=== PATIENT | male | born 1945 | race Caucasian/White ===

== ENCOUNTER 2016-11-16 22:25 | Inpatient (IN) | payer MEDICARE, BC ==
[~2016-11-16] VITALS: Ht 177.8 cm; Wt 85.9 kg
[2016-11-16 22:23] VITALS: O2SAT 98
[~2016-11-16 22:25] MED LIST: CHOL1TAB42 PO; IPRAAER INH; PANT40TA3 PO; PLAV75TA29 PO; SIMV20TA PO; VITA10004 PO
[2016-11-16 22:34] VITALS: BP 156/85; PULSE 107; RESP 30; TEMP 98.7
[2016-11-16 22:42] VITALS: BP 156/85; PULSE 99; RESP 25; O2SAT 98
[2016-11-16] MEDS ORDERED: SODIUM CHLORIDE 0.9% FLUSH 10 ML FLUSH IVF PRN (22:45)
[2016-11-16] MEDS ORDERED: RESP: ALBUTEROL 2.5 MG/IPRATROPIUM 0.5 MG NEB (SCH) NEB ONE (22:45)
[2016-11-16 22:52] VITALS: O2SAT 99
--- NOTE | 2016-11-16 23:03 | RADRPT ---
EXAM DATE/TIME: 11/16/2016 22:31 [place] COMPARISON: CHEST SINGLE AP, April 17, 2016, 20:30. INDICATIONS : Shortness of breath. MEDICAL HISTORY : None. SURGICAL HISTORY : Lobectomy. ENCOUNTER: Initial ACUITY: 1 day PAIN SCORE: 0/10 LOCATION: Bilateral chest FINDINGS: A single view of the chest demonstrates prominent lucency in the right upper lobe/right apex. There a re postsurgical changes in the right lung with volume loss. Lungs are slightly hyperinflated. Bibasil ar subsegmental atelectasis/scarring. Old rib fractures on the right. CONCLUSION: 1. Bibasilar subsegmental atelectasis/scarring. 2. Lucency in the right apex likely emphysematous changes. Rogelio Walton MD on November 16, 2016 at 22:59 Board Certified Radiologist. This report was verified electronically.
[2016-11-16 23:10] LABS: AUTOMATED NEUTROPHIL # 11.7 TH/MM3 (1.8-7.7); BASOPHIL # 0.1 TH/MM3 (0-0.2); BASOPHIL % 0.8 % (0.0-2.0); EOSINOPHIL # 0.1 TH/MM3 (0-0.4); EOSINOPHIL % 0.7 % (0.0-4.0); HEMATOCRIT 49.7 % (39.0-51.0); HEMO FLAGS DIFF FINAL; LYMPH % 8.9 % (9.0-44.0); LYMPHOCYTE # 1.2 TH/MM3 (1.0-4.8); MEAN CELL VOLUME 89.1 FL (80.0-100.0); MEAN CORPUSCULAR HEMOGLOBIN 29.8 PG (27.0-34.0); MEAN CORPUSCULAR HGB CONC 33.4 % (32.0-36.0); MONO % 5.7 % (0.0-8.0); NEUT % 83.9 % (16.0-70.0); PLATELET COUNT 140 TH/MM3 (150-450); RED BLOOD COUNT 5.57 MIL/MM3 (4.50-5.90); RED CELL DISTRIBUTION WIDTH 14.7 % (11.6-17.2); WHITE BLOOD COUNT 13.9 TH/MM3 (4.0-11.0)
[2016-11-16 23:10] LABS: BLOOD GAS BASE EXCESS 1.2 mmol/L (-2-2); BLOOD GAS CARBOXYHEMOGLOBIN 1.7 % (0-4); BLOOD GAS HCO3 26 mmol/L (22-26); BLOOD GAS METHEMOGLOBIN 0.5 % (0-2); BLOOD GAS O2 HGB SATURATION 98 % (90-100); BLOOD GAS OXYGEN CONTENT 24.1 Vol % (12.0-20.0); BLOOD GAS PCO2 44 mmHg (38-42); BLOOD GAS PO2 408 mmHG (61-120); BLOOD GAS TOTAL HGB 16.9 G/DL (12.0-16.0); CRITICAL VALUE NO; DRAW SITE RT RADIAL; NUMBER OF ARTERIAL PUNCTURES 1; OXYGEN DEVICE BiPAP; STAT YES; TEMP CORR TO 98.6; ULNAR PULSE PRESENT; VENT SETTINGS IPAP15/EPAP5
[2016-11-16 23:16] VITALS: O2SAT 99
[2016-11-16 23:16] LABS: FIO2 90 %
[2016-11-16 23:26] LABS: ANION GAP 7 MEQ/L (5-15); BICARBONATE 28.5 MEQ/L (21.0-32.0); BLOOD UREA NITROGEN 11 MG/DL (7-18); CHLORIDE 105 MEQ/L (98-107); GLOMERULAR FILTRATION RATE 61 ML/MIN (>89); POTASSIUM 3.6 MEQ/L (3.5-5.1); SODIUM (NA) 140 MEQ/L (136-145)
[2016-11-16 23:30] LABS: CREATINE KINASE 80 U/L (39-308)
[2016-11-16] MEDS ORDERED: SIMV20TA PO (23:33)
[2016-11-16] MEDS ORDERED: GUAI1TAB27 PO (23:34)
[2016-11-17] VITALS (10 sets, daily range): BP systolic 105–136; BP diastolic 56–76; PULSE 18–99; RESP 18–25; O2SAT 93–96
[2016-11-17] MEDS ORDERED: methylPREDNISolone SOD SUCC 125 MG/2 ML VIAL IVP ONE (00:30)
--- NOTE | 2016-11-17 00:30 | PD ---
HPI Chief Complaint: Respiratory Distress Time Seen by Provider: 22:36 Travel History International Travel<30 days: No Contact w/Intl Traveler<30days: No Traveled to known affect area: No History of Present Illness HPI 21-year-old male arrives to the ER with shortness of breath. He arrives by EVAC. He has been coughing all day long evidently severe at times. He reports dyspnea on exertion. Occasional phlegm production is reported. He has a history of COPD. He has a [id number] smoking history. He reports that dyspnea mild for the past 3 days which became quite a bit worse this afternoon. EMS gave the patient 80 milligrams of Lasix one sublingual nitroglycerin. On scene the blood pressure was 220/110 with a heart rate is 105. Minimal improvement was observed by the time the patient arrived to the ER. PFSH Past Medical History Hx Anticoagulant Therapy: Yes Anxiety: No Depression: No Cancer: Yes (PROSTATE) Cardiovascular Problems: Yes (Heart murmur) High Cholesterol: Yes COPD: Yes (Emphysema ) Cerebrovascular Accident: Yes (TIA) Diabetes: No Diminished Hearing: No Endocrine: No Gastrointestinal Disorders: No Genitourinary: No Hepatitis: No Hiatal Hernia: No Hypertension: Yes Immune Disorder: No Medical other: No Musculoskeletal: No Neurologic: Yes (TIA 1994) Psychiatric: No Respiratory: Yes Immunizations Current: Yes Thyroid Disease: Yes (S/P PTL THYROIDECTOMY FOR HYPER) Past Surgical History Abdominal Surgery: Yes (Appendix) AICD: No Appendectomy: Yes Body Medical Devices: [employer]. [employer] Cardiac Surgery: No Endocrine Surgery: Yes (Partial thyroid removal) Eye Surgery: Yes (Cataracts) Joint Replacement: No Pacemaker: No Thoracic Surgery: Yes (Right upper partial lobectomy) Other Surgery: Yes (R Partial Lobectomy December 25, 2015, thyroid removal 2010 ) Social History Alcohol Use: No Tobacco Use: No (Former smoker, quit December 2015) Substance Use: No Allergies-Medications (Allergen,Severity, Reaction): Coded Allergies: No Known Allergies (Verified , 04/17/16) Reported Meds & Prescriptions Reported Meds & Active Scripts Active Combivent Respimat Inh (Ipratropium-Albuterol Inh) 20-100 Retirement/Act Aero 1 Puff INH QID Pantoprazole (Pantoprazole Sodium) 40 Mg Tab 40 Mg PO DAILY Plavix (Clopidogrel Bisulfate) 75 Mg Tab 75 Mg PO DAILY Reported Mucinex Maximum Strength ER 12 HR (Guaifenesin) 1,200 Mg Kathleen 1,200 Mg PO BID Simvastatin 20 Mg Tab 20 Mg PO HS Vitamin D-3 (Cholecalciferol) 2,000 Unit Tab 2,000 Units PO DAILY Vitamin B-12 Cr (Cyanocobalamin) 1,000 Mcg Tab 2,000 Mcg PO DAILY Review of Systems Except as stated in HPI: all other systems reviewed are Neg General / Constitutional: No: Fever Respiratory: Positive: Cough, Shortness of Breath Physical Exam Narrative GENERAL: 71-year-old male pleasant, dyspneic SKIN: Focused skin assessment warm/dry. HEAD: Atraumatic. Normocephalic. EYES: Pupils equal and round. No scleral icterus. No injection or drainage. ENT: No nasal bleeding or discharge. Mucous membranes pink and moist. NECK: Trachea midline. No JVD. CARDIOVASCULAR: Tachycardia. Regular rhythm. RESPIRATORY: Lung sounds somewhat diminished bilaterally. Tachypnea/dyspnea. GASTROINTESTINAL: Abdomen soft, non-tender, nondistended. Hepatic and splenic margins not palpable. MUSCULOSKELETAL: No obvious deformities. No clubbing. No cyanosis. No edema. NEUROLOGICAL: Awake and alert. No obvious cranial nerve deficits. Motor grossly within normal limits. Normal speech. PSYCHIATRIC: Appropriate mood and affect; insight and judgment normal. Data Data Last Documented VS Vital Signs Date Time Temp Pulse Resp B/P Pulse Ox O2 Delivery O2 Flow Rate FiO2 11/16/16 23:16 99 35 11/16/16 22:52 BiPAP 11/16/16 22:42 104 25 11/16/16 22:42 156/85 11/16/16 22:34 98.7 Vital signs reviewed Orders Complete Blood Count With Diff (11/16/16 22:36) Basic Metabolic Panel (Bmp) (11/16/16 22:36) B-Type Natriuretic Peptide (11/16/16 22:36) Ckmb (Isoenzyme) Profile (11/16/16 22:36) Troponin I (11/16/16 22:36) Iv Access Insert/Monitor (11/16/16 22:36) Electrocardiogram (11/16/16 22:36) Ecg Monitoring (11/16/16 22:36) Oximetry (11/16/16 22:36) Oxygen Administration (11/16/16 22:36) Chest, Single Ap (11/16/16 22:36) Sodium Chloride 0.9% Flush (Ns Flush) (11/16/16 22:45) Resp Bipap / Cpap Non Invas Vt (11/16/16 22:36) Albuterol-Ipratropium Neb (Duoneb Neb) (11/16/16 22:45) Arterial Blood Gas (Abg) (11/16/16 23:00) Methylprednisolone So Succ Inj (Solumedr (11/17/16 00:30) Albuterol-Ipratropium Neb (Duoneb Neb) (11/17/16 00:30) Admit Order (Ed Use Only) (11/17/16 01:52) Labs Laboratory Tests Test 11/16/16 11/16/16 22:50 23:00 White Blood Count 13.9 TH/MM3 Red Blood Count 5.57 MIL/MM3 Hemoglobin 16.6 GM/DL Hematocrit 49.7 % Mean Corpuscular Volume 89.1 FL Mean Corpuscular Hemoglobin 29.8 PG Mean Corpuscular Hemoglobin 33.4 % Concent Red Cell Distribution Width 14.7 % Platelet Count 140 TH/MM3 Mean Platelet Volume 10.1 FL Neutrophils (%) (Auto) 83.9 % Lymphocytes (%) (Auto) 8.9 % Monocytes (%) (Auto) 5.7 % Eosinophils (%) (Auto) 0.7 % Basophils (%) (Auto) 0.8 % Neutrophils # (Auto) 11.7 TH/MM3 Lymphocytes # (Auto) 1.2 TH/MM3 Monocytes # (Auto) 0.8 TH/MM3 Eosinophils # (Auto) 0.1 TH/MM3 Basophils # (Auto) 0.1 TH/MM3 CBC Comment DIFF FINAL Differential Comment Sodium Level 140 MEQ/L Potassium Level 3.6 MEQ/L Chloride Level 105 MEQ/L Carbon Dioxide Level 28.5 MEQ/L Anion Gap 7 MEQ/L Blood Urea Nitrogen 11 MG/DL Creatinine 1.18 MG/DL Estimat Glomerular Filtration 61 ML/MIN Rate Random Glucose 121 MG/DL Calcium Level 9.7 MG/DL Total Creatine Kinase 80 U/L Troponin I LESS THAN 0.02 NG/ML B-Type Natriuretic Peptide 140 PG/ML Blood Gas Puncture Site RT RADIAL Blood Gas Patient Temperature 98.6 Blood Gas HCO3 26 mmol/L Blood Gas Base Excess 1.2 mmol/L Blood Gas Oxygen Saturation 98 % Arterial Blood pH 7.39 Arterial Blood Partial 44 mmHg Pressure CO2 Arterial Blood Partial 408 mmHG Pressure O2 Arterial Blood Oxygen Content 24.1 Vol % Arterial Blood 1.7 % Carboxyhemoglobin Arterial Blood Methemoglobin 0.5 % Blood Gas Hemoglobin 16.9 G/DL Oxygen Delivery Device BiPAP Blood Gas Ventilator Setting IPAP15/EPAP5 Blood Gas Inspired Oxygen 90 % MDM Medical Decision Making Medical Screen Exam Complete: Yes Emergency Medical Condition: Yes Medical Record Reviewed: Yes Differential Diagnosis Pneumonia, COPD, CHF Narrative Course CBC & BMP Diagram 11/16/16 22:50 EKG sinus tachycardia with occasional PVCs rate 101 BNP 140 Tn < 0.2 Last 24 hours Impressions Chest X-Ray 11/16/166 Signed Impressions: Service Date/Time: Wednesday, November 16, 2016 22:31 - CONCLUSION: 1. Bibasilar subsegmental atelectasis/scarring. 2. Lucency in the right apex likely emphysematous changes. Rogelio Walton MD Patient will be admitted for COPD exacerbation. d/w Dr Ordoñez. Diagnosis Primary Impression: COPD (chronic obstructive pulmonary disease) Qualified Code: J43.9 - Pulmonary emphysema, unspecified emphysema type Admitting Information Admitting Physician Requests: Admit Mac Esposito MD Nov 17, 2016 00:30
[2016-11-17] MEDS: RESP: ALBUTEROL 2.5 MG/IPRATROPIUM 0.5 MG NEB (SCH) INH (00:35)
[2016-11-17] MEDS ORDERED: RESP: ALBUTEROL 2.5 MG/IPRATROPIUM 0.5 MG NEB (PRN) NEB (02:15)
[2016-11-17] MEDS ORDERED: ONDANSETRON HCL 4 MG/2 ML VIAL IVP PRN (02:15)
[2016-11-17] MEDS ORDERED: MORPHINE SULFATE 4 MG/ML INJ IV PRN (02:15)
[2016-11-17] MEDS ORDERED: SODIUM CHLORIDE 0.9% FLUSH 10 ML FLUSH IV FLUSH PRN (02:15)
[2016-11-17] MEDS ORDERED: BISACODYL 10 MG SUPP PR PRN (02:15)
[2016-11-17] MEDS ORDERED: ACETAMINOPHEN/HYDROcodone 325 MG/5 MG TAB PO PRN (02:15)
[2016-11-17] MEDS ORDERED: ACETAMINOPHEN 325 MG TAB PO PRN (02:15)
--- NOTE | 2016-11-17 04:01 | HHI.HP ---
HPI Service [facility] Primary Care Physician Randee Bobo MD Admission Diagnosis COPD, Dyspnea Diagnoses: (1) COPD (chronic obstructive pulmonary disease) Diagnosis: Principal (2) Hypoxia Diagnosis: Principal (3) Leukocytosis Diagnosis: Principal (4) Thrombocytopenia Diagnosis: Principal (5) Dehydration Diagnosis: Principal Travel History International Travel<30 Days: No Contact w/Intl Traveler <30 Da: No Traveled to Known Affected Are: No History of Present Illness This is a 71-year-old male with a PMH of COPD, HTN, Prostate CA and h/o TIA who was brought to the ER by EMS secondary to SOB x3 days. Per , pt w/ progressive SOB and non-productive cough x3 days. Denies fever or chills. O2 sat 80's upon EMS arrival, s/p Lasix 80mg IV, NTG and placed on CPAP. On arrival, BP 156/85, HR 107, O2 sat 100% on BiPAP, Afebrile. WBC 13.9. Platelets 140, previously 126 on 04/19/16. GFR 61. BNP 140. CXR with bibasilar subsegmental atelectasis/scarring, lucency and right apex likely emphysematous changes. S/p Solu-Medrol and DuoNeb in ER w/ some improvement. Review of Systems Except as stated in HPI: all other systems reviewed are Neg ROS: 14 point review of systems otherwise negative. Past Family Social History Past Medical History PMH: COPD, HTN, Prostate CA and h/o TIA Past Surgical History PAST SURGICAL HISTORY: Appendectomy, Bilateral Wrist Surgery, Partial Thyroidectomy, Cataract Surgery, Right Partial Upper Lobectomy Allergies: Coded Allergies: No Known Allergies (Verified , 04/17/16) Family History PAST FAMILY HISTORY: Reviewed. No h/o DM or CAD Social History PAST SOCIAL HISTORY: Negative for alcohol, tobacco or drugs Physical Exam Vital Signs Vital Signs Date Time Temp Pulse Resp B/P Pulse Ox O2 Delivery O2 Flow Rate FiO2 11/17/16 03:23 94 35 11/17/16 03:18 84 18 107/59 96 BiPAP 3/26/17 23:16 99 35 11/16/16 22:52 99 BiPAP 100 11/16/16 22:42 104 25 98 CPAP 11/16/16 22:42 98 Room Air 11/16/16 22:42 99 25 156/85 98 BiPAP 100 11/16/16 22:42 98 BiPAP 11/16/16 22:34 98.7 107 30 156/85 11/16/16 22:23 98 90 Physical Exam PE: GENERAL: Elderly white male in no acute distress, currently on BiPAP. HEENT: PERRLA, EOMI. No scleral icterus or conjunctival pallor. No lid lag or facial droop. CARDIOVASCULAR: Regular rate and rhythm. No obvious murmurs to auscultation. No chest tenderness to palpation. RESPIRATORY: No obvious rhonchi or wheezing. Clear to auscultation. Breath sounds mildly diminished at bases. GASTROINTESTINAL: Abdomen soft, non-tender, nondistended. BS normal. MUSCULOSKELETAL: Extremities without clubbing, cyanosis, or edema. No obvious deformities. NEUROLOGICAL: Awake, alert and oriented x4. No focal neurologic deficits. Moving both upper and lower extremities spontaneously. Laboratory Laboratory Tests Test 11/16/16 11/16/16 22:50 23:00 White Blood Count 13.9 Red Blood Count 5.57 Hemoglobin 16.6 Hematocrit 49.7 Mean Corpuscular Volume 89.1 Mean Corpuscular Hemoglobin 29.8 Mean Corpuscular Hemoglobin 33.4 Concent Red Cell Distribution Width 14.7 Platelet Count 140 Mean Platelet Volume 10.1 Neutrophils (%) (Auto) 83.9 Lymphocytes (%) (Auto) 8.9 Monocytes (%) (Auto) 5.7 Eosinophils (%) (Auto) 0.7 Basophils (%) (Auto) 0.8 Neutrophils # (Auto) 11.7 Lymphocytes # (Auto) 1.2 Monocytes # (Auto) 0.8 Eosinophils # (Auto) 0.1 Basophils # (Auto) 0.1 CBC Comment DIFF FINAL Differential Comment Sodium Level 140 Potassium Level 3.6 Chloride Level 105 Carbon Dioxide Level 28.5 Anion Gap 7 Blood Urea Nitrogen 11 Creatinine 1.18 Estimat Glomerular Filtration 61 Rate Random Glucose 121 Calcium Level 9.7 Total Creatine Kinase 80 Troponin I LESS THAN 0.02 B-Type Natriuretic Peptide 140 Blood Gas Puncture Site RT RADIAL Blood Gas Patient Temperature 98.6 Blood Gas HCO3 26 Blood Gas Base Excess 1.2 Blood Gas Oxygen Saturation 98 Arterial Blood pH 7.39 Arterial Blood Partial 44 Pressure CO2 Arterial Blood Partial 408 Pressure O2 Arterial Blood Oxygen Content 24.1 Arterial Blood 1.7 Carboxyhemoglobin Arterial Blood Methemoglobin 0.5 Blood Gas Hemoglobin 16.9 Oxygen Delivery Device BiPAP Blood Gas Ventilator Setting IPAP15/EPAP5 Blood Gas Inspired Oxygen 90 Result Diagram: 11/16/16224911/16/162249 Assessment and Plan Problem List: (1) COPD (chronic obstructive pulmonary disease) ICD Code: J44.9 Status: Chronic (2) Hypoxia ICD Code: R09.02 Status: Acute (3) Leukocytosis ICD Code: D72.829 Status: Acute (4) Thrombocytopenia ICD Code: D69.6 Status: Acute (5) Dehydration ICD Code: E86.0 Status: Acute Assessment and Plan A/P: 1. COPD: Chronic Respiratory Failure w/ Acute Exacerbation. +Hypoxia w/ O2 sat 80% on EMS arrival, currently on BIPAP, wean as tolerated. CXR w/ bibasilar atelectasis/scarring, likely emphysema, images reviewed by me. Solu- Medrol, DuoNeb, Symbicort, Mucinex. 2. Leukocytosis: WBC 13.9, afebrile, CXR negative for acute infection, will monitor, repeat labs in am. 3. Dehydration: GFR 61, dehydration likely secondary to respiratory losses, will repeat labs in am. 4. DVT Prophylaxis: SCD/Teds. 5. Social work for d/c planning as needed. 6. Case discussed w/ ER physician at length. Physician Certification 2 Midnight Certification Type: Admission for Inpatient Services Order for Inpatient Services The services are ordered in accordance with Medicare regulations or non- Medicare payer requirements, as applicable. In the case of services not specified as inpatient-only, they are appropriately provided as inpatient services in accordance with the 2-midnight benchmark. Estimated LOS (days): 2 days is the estimated time the patient will need to remain in the hospital, assuming treatment plan goals are met and no additional complications. Post-Hospital Plan: Not yet determined Kelly Ordoñez MD Nov 17, 2016 04:01
[2016-11-17] MEDS: methylPREDNISolone SOD SUCC 40 MG/1 ML VIAL IV PUSH SCH ×4 (06:03→23:49)
[2016-11-17] MEDS: RESP: ALBUTEROL 2.5 MG/IPRATROPIUM 0.5 MG NEB (SCH) NEB ×4 (08:36→20:32)
[2016-11-17] MEDS: PANTOPRAZOLE SOD 40 MG DELAYED RELEASE TAB PO SCH (09:34)
[2016-11-17] MEDS: CLOPIDOGREL 75 MG TAB PO SCH (09:34)
[2016-11-17] MEDS: guaiFENesin E.R. 600 MG TAB PO SCH ×2 (09:34→23:49)
[2016-11-17] MEDS: BUDESONIDE-FORMOTEROL 160/4.5 MCG INHALER INH SCH ×2 (09:34→23:49)
[2016-11-17] MEDS: SODIUM CHLORIDE 0.9% FLUSH 10 ML FLUSH IV FLUSH SCH ×2 (10:00→21:00)
--- NOTE | 2016-11-17 15:11 | HHI.PR ---
Addendum to Inpatient Note Addendum Reason: Additional Documentation Additional Information Patient seen and examined. Breathing status improved. Continue to monitor breathing status. Supplemental oxygen, breathing treatments and steroids. Osmin Lowe MD Nov 17, 2016 15:11
--- NOTE | 2016-11-17 17:35 | EKG ---
Date Performed: 11/16/2016 Time Performed: 22:40:49 PTAGE: 71 years EKG: SINUS TACHYCARDIA WITH OCCASIONAL SUPRAVENTRICULAR PREMATURE COMPLEXES SEPTAL MYOCARDIAL IN FARCTION. Loss of R wave in lead V3 and V4 are more prominant than in prior Tracing, could represent lead placement or septal infarct. Clinical corrolation is suggested. ABNORMAL ECG PREVIOUS TRACING : 08/23/2014 09.07 DOCTOR: Tiburcio Lovelace Interpretating Date/Time 11/17/2016 17:33:44
[2016-11-18] VITALS (13 sets, daily range): BP systolic 102–155; BP diastolic 58–97; PULSE 83–98; RESP 16–22; TEMP 97.7–98.4; O2SAT 94–98
[2016-11-18 04:08] LABS: AUTOMATED NEUTROPHIL # 10.7 TH/MM3 (1.8-7.7); BASOPHIL % 0.2 % (0.0-2.0); HEMO FLAGS DIFF FINAL; LYMPH % 3.6 % (9.0-44.0); LYMPHOCYTE # 0.4 TH/MM3 (1.0-4.8); MEAN CELL VOLUME 88.1 FL (80.0-100.0); MONO % 3.7 % (0.0-8.0); NEUT % 92.5 % (16.0-70.0); PLATELET COUNT 141 TH/MM3 (150-450); RED BLOOD COUNT 5.11 MIL/MM3 (4.50-5.90); RED CELL DISTRIBUTION WIDTH 15.3 % (11.6-17.2); WHITE BLOOD COUNT 11.6 TH/MM3 (4.0-11.0)
[2016-11-18 04:43] LABS: ALKALINE PHOSPHATASE 55 U/L (45-117); ALT (GPT) 31 U/L (12-78); ANION GAP 7 MEQ/L (5-15); AST (GOT) 13 U/L (15-37); BICARBONATE 29.2 MEQ/L (21.0-32.0); BLOOD UREA NITROGEN 27 MG/DL (7-18); CHLORIDE 104 MEQ/L (98-107); GLOMERULAR FILTRATION RATE 54 ML/MIN (>89); POTASSIUM 4.5 MEQ/L (3.5-5.1); SODIUM (NA) 140 MEQ/L (136-145); TOTAL BILIRUBIN ADULT 0.7 MG/DL (0.2-1.0)
[2016-11-18] MEDS: methylPREDNISolone SOD SUCC 40 MG/1 ML VIAL IV PUSH SCH ×2 (06:48→21:17)
[2016-11-18] MEDS: RESP: ALBUTEROL 2.5 MG/IPRATROPIUM 0.5 MG NEB (SCH) NEB ×3 (08:01→19:31)
[2016-11-18] MEDS: BUDESONIDE-FORMOTEROL 160/4.5 MCG INHALER INH SCH ×2 (09:09→21:00)
[2016-11-18] MEDS: SODIUM CHLORIDE 0.9% FLUSH 10 ML FLUSH IV FLUSH SCH ×2 (09:09→21:00)
[2016-11-18] MEDS: CLOPIDOGREL 75 MG TAB PO SCH (09:09)
[2016-11-18] MEDS: PANTOPRAZOLE SOD 40 MG DELAYED RELEASE TAB PO SCH (09:09)
--- NOTE | 2016-11-18 10:23 | HHI.PR ---
Subjective Remarks Patient report his breathing is better. He is coughing less. Shortness of breath is at baseline. Objective Vitals Vital Signs Date Time Temp Pulse Resp B/P Pulse Ox O2 Delivery O2 Flow Rate FiO2 11/18/16 09:00 97.7 98 16 140/69 94 Nasal Cannula 3 11/18/16 08:03 96 Nasal Cannula 4.00 11/18/16 03:00 84 18 102/58 95 Nasal Cannula 3 11/17/16 23:00 92 25 105/56 95 Nasal Cannula 3 11/17/16 20:35 93 Nasal Cannula 5.00 11/17/16 19:01 99 18 111/75 95 Nasal Cannula 2 11/17/16 14:05 93 18 105/63 95 Room Air I/O 11/17/16 11/17/16 11/17/16 11/18/16 11/18/16 11/18/16 07:00 15:00 23:00 07:00 15:00 23:00 Intake Total 350 ml 350 ml Output Total 500 ml Balance 350 ml -150 ml Intake Oral 350 ml 350 ml Output Urine Total 500 ml # Voids 1 Result Diagram: 11/18/16 0351 11/18/16 0351 Imaging Last Impressions Chest X-Ray 11/16/162235 Signed Impressions: Service Date/Time: Wednesday, November 16, 2016 22:31 - CONCLUSION: 1. Bibasilar subsegmental atelectasis/scarring. 2. Lucency in the right apex likely emphysematous changes. Rogelio Walton MD Objective Remarks GENERAL: Elderly male in no apparent distress. CARDIOVASCULAR: Normal rate and regular rhythm without murmurs, gallops, or rubs. RESPIRATORY: Good respiratory efforts. Some diffuse faint expiratory wheezing. Otherwise diminished breath sounds at the bases. GASTROINTESTINAL: Abdomen soft, non-tender, non-distended. Normal active bowel sounds MUSCULOSKELETAL: Extremities without cyanosis, or edema. NEURO: Alert & Oriented x4 to person, place, time, situation. Moves all ext x4 PSYCH: Appropriate mood and affect. A/P Problem List: (1) COPD (chronic obstructive pulmonary disease) ICD Code: J44.9 Status: Chronic (2) Hypoxia ICD Code: R09.02 Status: Acute (3) Leukocytosis ICD Code: D72.829 Status: Acute (4) Thrombocytopenia ICD Code: D69.6 Status: Acute (5) Dehydration ICD Code: E86.0 Status: Acute Assessment and Plan 71-year-old male with: COPD exacerbation with hypoxemia: Oxygen saturation 80% on EMS arrival. Status post BiPAP. He is improving. - Continue Solu-Medrol. Titrate down to 40 mg IV twice a day. Continue breathing treatments, Symbicort, Mucinex. Add doxycycline. Follow sputum cultures - Consult patient's legal internship, Dr. Miller - Patient previously had home oxygen. History of prostate cancer: Advised outpatient follow-up. 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 GI prophylaxis: PPI. Stool softener PRN constipation. DVT PPx: Lovenox, renally dosed. Osmin Lowe MD Nov 18, 2016 10:23
[2016-11-18] MEDS: guaiFENesin E.R. 600 MG TAB PO SCH ×2 (10:30→21:18)
[2016-11-18] MEDS: DOXYCYCLINE HYCLATE 100 MG CAP PO SCH ×2 (13:55→21:17)
[2016-11-18] MEDS ORDERED: methylPREDNISolone SOD SUCC 40 MG/1 ML VIAL IV PUSH SCH (21:00)
[2016-11-18] MEDS: CEFEPIME INJ 2,000 MG in SODIUM CHLORIDE 0.9% INJ 100 ML IV SCH (21:19)
[2016-11-19] VITALS (26 sets, daily range): BP systolic 121–137; BP diastolic 74–82; PULSE 73–92; RESP 18; TEMP 96.5–98.7; O2SAT 95–99
[2016-11-19] MEDS: methylPREDNISolone SOD SUCC 40 MG/1 ML VIAL IV PUSH SCH ×2 (05:10→13:13)
--- NOTE | 2016-11-19 05:49 | MB ---
cc: ROSCOE BOWMAN DATE OF CONSULTATION 11/18/2016 REASON FOR CONSULTATION Respiratory distress and COPD. HISTORY OF PRESENT ILLNESS This is a 71-year-old white male with a history of COPD, hypertension and chronic bronchitis. He has had past history of right upper lobe granulomatous lung lesion. This was resected with a right lobectomy almost a year ago and the patient had a prolonged recovery with persistent loculated pneumothorax on the right side. He had also been treated for atypical mycobacterial infection which was later discontinued. His most recent chest x-ray only showed a small area of loculated pneumothorax on the right side. The patient started to have cough, wheezing, chest congestion, yellow sputum, weakness and low-grade fevers over the past one week. He was taking a cough medicine as well as an antibiotic but had no significant relief as an outpatient. He then could not catch his breath on Thursday and EVAC was called and then he was brought to the emergency room. A chest x-ray done upon arrival only showed scar tissue on the right side with some lucency at the right apex. The patient was initially placed on 100% FIO2 with a BiPap machine and he then improved. He was given IV steroids and bronchodilators and was transferred to the telemetry floor today. He has no hemoptysis, no night sweats or fevers and his chest pains are mostly on the right side. PAST HISTORY 1. Appendectomy. 2. Thyroidectomy. 3. Cataract repair. 4. Right upper lobectomy. 5. Bilateral wrist surgery. HABITS The patient smoked one pack per day for over 60 years and then quit. Alcohol use in the past but not recently. He is retired. FAMILY HISTORY Noncontributory. ALLERGIES None. SYSTEMS REVIEW The patient has gained weight. He has epigastric distress. He has right chest pains. He has no urinary symptoms. No leg or calf muscle pains. He has some joint pains in his extremities. No headaches or blackouts. PHYSICAL EXAMINATION GENERAL: This well-built elderly man who is alert and face was flushed. He is mildly dyspneic. VITAL SIGNS: Blood pressure 110/60, pulse 90, respirations 24, temperature 98.5. HEENT: Head normocephalic. Pupils reactive. Tongue moist. Nasal mucosa injected. Throat was clear. NECK: Supple without venous distension. No thyromegaly. No lymphadenopathy. CHEST: Equal movements with an increased AP diameter. Scar of surgery on the right side. Breath sounds diminished at the periphery. Crackles heard over the right mid and lower chest with a few crackles at the left base. HEART SOUNDS: Irregular S1 and S2. No murmur. ABDOMEN: Soft, benign. No masses. No organomegaly or tenderness. EXTREMITIES: No edema. NEUROLOGIC: Normal reflexes. There are no gross motor deficits. IMPRESSION 1. COPD with acute exacerbation 2. Severe emphysema with chronic bronchitis 3. 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 4. Thrombocytopenia. 5. Dehydration. PLAN 1. The patient has been placed on O2 at 2 liters. 2. Continue Solu-Medrol 40 mg IV every 6 hours. 3. Sputum will be sent for Gram's stain and culture. 4. Symbicort 160/4.5, two puffs twice daily was added. 5. DuoNeb nebs q.4 hours. 6. Antibiotic coverage including cefepime 2 grams IV q.12 hours was added in addition to doxycycline 100 mg b.i.d. 7. Follow-up chest x-ray to be done. Thank you, Dr. Ordoñez, for this consultation. MD KOTA Quinones/ERICA /12:04 AM /5:39 AM
[2016-11-19 06:47] LABS: BICARBONATE 31.5 MEQ/L (21.0-32.0); POTASSIUM 4.4 MEQ/L (3.5-5.1)
[2016-11-19 06:59] LABS: HEMATOCRIT 45.7 % (39.0-51.0); MEAN CELL VOLUME 89.2 FL (80.0-100.0); MEAN CORPUSCULAR HGB CONC 33.6 % (32.0-36.0); PLATELET COUNT 146 TH/MM3 (150-450); RED BLOOD COUNT 5.12 MIL/MM3 (4.50-5.90); REVIEW FLAG FINAL; WHITE BLOOD COUNT 11.1 TH/MM3 (4.0-11.0)
[2016-11-19] MEDS: RESP: ALBUTEROL 2.5 MG/IPRATROPIUM 0.5 MG NEB (SCH) NEB ×4 (07:36→19:41)
[2016-11-19] MEDS: BUDESONIDE-FORMOTEROL 160/4.5 MCG INHALER INH SCH ×2 (09:00→21:00)
[2016-11-19] MEDS: SODIUM CHLORIDE 0.9% FLUSH 10 ML FLUSH IV FLUSH SCH ×2 (09:00→21:00)
[2016-11-19] MEDS: DOXYCYCLINE HYCLATE 100 MG CAP PO SCH ×2 (09:17→21:57)
[2016-11-19] MEDS: PANTOPRAZOLE SOD 40 MG DELAYED RELEASE TAB PO SCH (09:18)
[2016-11-19] MEDS: CLOPIDOGREL 75 MG TAB PO SCH (09:18)
[2016-11-19] MEDS: CEFEPIME INJ 2,000 MG in SODIUM CHLORIDE 0.9% INJ 100 ML IV SCH ×2 (09:18→21:57)
[2016-11-19] MEDS: guaiFENesin E.R. 600 MG TAB PO SCH ×2 (09:18→21:57)
--- NOTE | 2016-11-19 12:24 | HHI.PR ---
Subjective Remarks Patient seen in follow-up for COPD exacerbation with hypoxemia: Patient reports he is feeling better. Coughing less but still get short of breath with minimal activities. He inquired about cardiopulmonary rehabilitation outpatient. Objective Vitals Vital Signs Date Time Temp Pulse Resp B/P Pulse Ox O2 Delivery O2 Flow Rate FiO2 11/19/16 11:06 97.9 79 18 126/76 96 11/19/16 11:06 81 11/19/16 10:39 78 11/19/16 09:39 78 11/19/16 08:34 88 11/19/16 07:56 86 11/19/16 07:38 98.4 88 18 133/82 95 11/19/16 06:13 73 11/19/16 05:00 74 11/19/16 04:00 80 11/19/16 03:00 84 11/19/16 03:00 98.7 83 121/74 98 11/19/16 02:00 78 11/19/16 01:00 80 11/19/16 00:00 86 11/18/16 23:00 98.3 83 131/74 96 11/18/16 23:00 87 11/18/16 22:00 84 11/18/16 21:00 96 11/18/16 20:00 98 11/18/16 19:00 88 11/18/16 19:00 98.4 95 155/86 97 11/18/16 16:14 97.8 92 20 108/65 94 11/18/16 15:03 95 Nasal Cannula 2.00 11/18/16 13:01 97.9 93 22 119/67 98 I/O 11/18/16 11/18/16 11/18/16 11/19/16 11/19/16 11/19/16 07:00 15:00 23:00 07:00 15:00 23:00 Intake Total 200 ml 240 ml Output Total 400 ml 300 ml Balance -200 ml -60 ml Intake Oral 200 ml 240 ml Output Urine Total 400 ml 300 ml # Voids 1 Result Diagram: 11/19/1652511/19/16525 Objective Remarks GENERAL: Elderly male in no apparent distress. CARDIOVASCULAR: Normal rate and regular rhythm without murmurs, gallops, or rubs. RESPIRATORY: Good respiratory efforts. Some diffuse faint expiratory wheezing. Otherwise diminished breath sounds at the bases. GASTROINTESTINAL: Abdomen soft, non-tender, non-distended. Normal active bowel sounds MUSCULOSKELETAL: Extremities without cyanosis, or edema. NEURO: Alert & Oriented x4 to person, place, time, situation. Moves all ext x4 PSYCH: Appropriate mood and affect. A/P Problem List: (1) COPD (chronic obstructive pulmonary disease) ICD Code: J44.9 Status: Chronic (2) Hypoxia ICD Code: R09.02 Status: Acute (3) Leukocytosis ICD Code: D72.829 Status: Acute (4) Thrombocytopenia ICD Code: D69.6 Status: Acute (5) Dehydration ICD Code: E86.0 Status: Acute Assessment and Plan 71-year-old male with: COPD exacerbation with hypoxemia: Oxygen saturation 80% on EMS arrival. Status post BiPAP. He is improving. - Continue Solu-Medro, breathing treatments, Symbicort, Mucinex. Cefepime and doxycycline. Preliminary sputum culture growing Moraxella catarrhalis -Appreciate trench pipe layer, Dr. Miller following. - Patient previously had home oxygen. History of prostate cancer: Advised outpatient follow-up. 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 GI prophylaxis: PPI. Stool softener PRN constipation. DVT PPx: Lovenox, renally dosed. Osmin Lowe MD Nov 19, 2016 12:24
[2016-11-19] MEDS: ENOXAPARIN SODIUM 30 MG/0.3 ML SYRINGE SQ SCH (13:13)
--- NOTE | 2016-11-19 19:28 | HHI.PR ---
Subjective Remarks Feels better. On O2 3 L. Sputum is clearing. No fever. SOB better Objective Vital Signs Date Time Temp Pulse Resp B/P Pulse Ox O2 Delivery O2 Flow Rate FiO2 11/19/16 18:07 86 11/19/16 17:08 86 11/19/16 16:00 92 11/19/16 15:57 86 11/19/16 15:57 97.7 88 18 137/76 97 11/19/16 15:23 97 Nasal Cannula 2.00 11/19/16 14:16 92 11/19/16 13:50 90 11/19/16 12:55 82 11/19/16 11:06 97.9 79 18 126/76 96 11/19/16 11:06 81 11/19/16 10:39 78 11/19/16 09:39 78 11/19/16 08:34 88 11/19/16 07:56 86 11/19/16 07:38 98.4 88 18 133/82 95 11/19/16 06:13 73 11/19/16 05:00 74 11/19/16 04:00 80 11/19/16 03:00 84 11/19/16 03:00 98.7 83 121/74 98 11/19/16 02:00 78 11/19/16 01:00 80 11/19/16 00:00 86 11/18/16 23:00 98.3 83 131/74 96 11/18/16 23:00 87 11/18/16 22:00 84 11/18/16 21:00 96 11/18/16 20:00 98 I/O 11/18/16 11/18/16 11/18/16 11/19/16 11/19/16 11/19/16 07:00 15:00 23:00 07:00 15:00 23:00 Intake Total 200 ml 240 ml 700 ml Output Total 400 ml 300 ml 575 ml Balance -200 ml -60 ml 125 ml Intake Oral 200 ml 240 ml 700 ml Output Urine Total 400 ml 300 ml 575 ml # Voids 1 # Bowel Movements 1 Result Diagram: 11/19/1652511/19/16525 Objective Remarks PHYSICAL EXAMINATION GENERAL: This well-built elderly man who is alert and face was flushed. He is not dyspneic. HEENT: Head normocephalic. Pupils reactive. Tongue moist. Nasal mucosa injected. Throat was clear. NECK: Supple without venous distension. No thyromegaly. No lymphadenopathy. CHEST: Equal movements with an increased AP diameter. Scar of surgery on the right side. Breath sounds diminished at the periphery. Crackles heard over the right mid and lower chest with a few wheezes anteriorly HEART SOUNDS: Irregular S1 and S2. No murmur. ABDOMEN: Soft, benign. No masses. No organomegaly or tenderness. EXTREMITIES: No edema. NEUROLOGIC: Normal reflexes. There are no gross motor deficits. Assessment and Plan Assessment and Plan IMPRESSION 1. COPD with acute exacerbation 2. Severe emphysema with chronic bronchitis 3. 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 4. Thrombocytopenia. 5. Dehydration. Plan : 1. Continue antibioitcs. 2. O2 at 2L. 3. Nebs qid , duoneb. 4. taper solumedrol to 40 mg bid. 5. Symbicort 160/4.5 mcg , 2 puffs bid 6. CBC,BMP Nico Miller MD Nov 19, 2016 19:28
[2016-11-20] VITALS (26 sets, daily range): BP systolic 120–159; BP diastolic 59–96; PULSE 68–92; RESP 18–20; TEMP 97.7–98.1; O2SAT 95–98
[2016-11-20 07:04] LABS: HEMATOCRIT 44.6 % (39.0-51.0); MEAN CELL VOLUME 89.4 FL (80.0-100.0); MEAN CORPUSCULAR HEMOGLOBIN 30.1 PG (27.0-34.0); MEAN CORPUSCULAR HGB CONC 33.7 % (32.0-36.0); PLATELET COUNT 118 TH/MM3 (150-450); RED BLOOD COUNT 4.99 MIL/MM3 (4.50-5.90); RED CELL DISTRIBUTION WIDTH 14.7 % (11.6-17.2); REVIEW FLAG FINAL; WHITE BLOOD COUNT 7.4 TH/MM3 (4.0-11.0)
[2016-11-20 07:11] LABS: POTASSIUM 4.4 MEQ/L (3.5-5.1)
[2016-11-20] MEDS: RESP: ALBUTEROL 2.5 MG/IPRATROPIUM 0.5 MG NEB (SCH) NEB ×4 (08:23→20:43)
[2016-11-20] MEDS ORDERED: methylPREDNISolone SOD SUCC 40 MG/1 ML VIAL IV PUSH SCH (09:00)
[2016-11-20] MEDS: SODIUM CHLORIDE 0.9% FLUSH 10 ML FLUSH IV FLUSH SCH (09:00)
[2016-11-20] MEDS: BUDESONIDE-FORMOTEROL 160/4.5 MCG INHALER INH SCH ×2 (09:00→21:00)
[2016-11-20] MEDS: DOXYCYCLINE HYCLATE 100 MG CAP PO SCH ×2 (09:08→21:15)
[2016-11-20] MEDS: guaiFENesin E.R. 600 MG TAB PO SCH ×2 (09:08→21:14)
[2016-11-20] MEDS: CLOPIDOGREL 75 MG TAB PO SCH (09:08)
[2016-11-20] MEDS: PANTOPRAZOLE SOD 40 MG DELAYED RELEASE TAB PO SCH (09:08)
[2016-11-20] MEDS: CEFEPIME INJ 2,000 MG in SODIUM CHLORIDE 0.9% INJ 100 ML IV SCH ×2 (09:08→21:16)
--- NOTE | 2016-11-20 10:39 | HHI.PR ---
Subjective Remarks Patient reports feeling better. Coughing less green sputum. More clear. Still on 2 L nasal cannula. Objective Vitals Vital Signs Date Time Temp Pulse Resp B/P Pulse Ox O2 Delivery O2 Flow Rate FiO2 11/20/16 08:25 98 Nasal Cannula 2.00 11/20/16 06:53 72 11/20/16 05:00 68 11/20/16 04:00 74 11/20/16 03:00 75 132/75 96 11/20/16 03:00 71 11/20/16 02:00 78 11/20/16 01:00 78 11/20/16 00:00 74 11/19/16 23:00 73 11/19/16 23:00 98.6 79 136/74 99 11/19/16 22:00 92 11/19/16 21:00 92 11/19/16 20:00 84 11/19/16 19:00 96.5 79 137/76 97 11/19/16 19:00 85 11/19/16 18:07 86 11/19/16 17:08 86 11/19/16 16:00 92 11/19/16 15:57 86 11/19/16 15:57 97.7 88 18 137/76 97 11/19/16 15:23 97 Nasal Cannula 2.00 11/19/16 14:16 92 11/19/16 13:50 90 11/19/16 12:55 82 11/19/16 11:06 97.9 79 18 126/76 96 11/19/16 11:06 81 11/19/16 10:39 78 I/O 11/19/16 11/19/16 11/19/16 11/20/16 11/20/16 11/20/16 07:00 15:00 23:00 07:00 15:00 23:00 Intake Total 240 ml 700 ml 240 ml Output Total 300 ml 575 ml 300 ml Balance -60 ml 125 ml -60 ml Intake Oral 240 ml 700 ml 240 ml Output Urine Total 300 ml 575 ml 300 ml # Bowel Movements 1 Result Diagram: 11/20/1651211/20/16512 Objective Remarks GENERAL: Elderly male in no apparent distress. CARDIOVASCULAR: Normal rate and regular rhythm without murmurs, gallops, or rubs. RESPIRATORY: Good respiratory efforts. Diminished breath sounds at the bases. Otherwise clear to auscultation. GASTROINTESTINAL: Abdomen soft, non-tender, non-distended. Normal active bowel sounds MUSCULOSKELETAL: Extremities without cyanosis, or edema. NEURO: Alert & Oriented x4 to person, place, time, situation. Moves all ext x4 PSYCH: Appropriate mood and affect. A/P Problem List: (1) COPD (chronic obstructive pulmonary disease) ICD Code: J44.9 Status: Chronic (2) Hypoxia ICD Code: R09.02 Status: Acute (3) Leukocytosis ICD Code: D72.829 Status: Acute (4) Thrombocytopenia ICD Code: D69.6 Status: Acute (5) Dehydration ICD Code: E86.0 Status: Acute Assessment and Plan 71-year-old male with: COPD exacerbation with hypoxemia: Oxygen saturation 80% on EMS arrival. Status post BiPAP. He is improving. - Continue Solu-Medro, breathing treatments, Symbicort, Mucinex. Cefepime and doxycycline. Preliminary sputum culture growing Moraxella catarrhalis - Appreciate metal bending machine operator, Dr. Miller following. - Patient previously has had home oxygen in the past. Will order home oxygen walk test. History of prostate cancer: Advised outpatient follow-up. 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 GI prophylaxis: PPI. Stool softener PRN constipation. DVT PPx: Lovenox, renally dosed. Discharge Planning Possible discharge tomorrow if remains stable. Osmin Lowe MD Nov 20, 2016 10:38
[2016-11-20] MEDS: ENOXAPARIN SODIUM 30 MG/0.3 ML SYRINGE SQ SCH (13:15)
--- NOTE | 2016-11-20 18:35 | HHI.PR ---
Subjective Remarks Feels much better. On O2 2 L. Sputum is clearing. No fever. SOB better Objective Vital Signs Date Time Temp Pulse Resp B/P Pulse Ox O2 Delivery O2 Flow Rate FiO2 11/20/16 18:25 91 11/20/16 17:29 92 11/20/16 16:02 91 11/20/16 15:34 81 11/20/16 15:34 98.0 81 120/59 97 11/20/16 14:15 85 11/20/16 13:42 87 11/20/16 12:26 80 11/20/16 11:40 76 11/20/16 11:40 97.7 75 139/74 95 11/20/16 11:24 2.00 11/20/16 10:39 75 11/20/16 09:45 75 11/20/16 08:56 71 11/20/16 08:25 98 Nasal Cannula 2.00 11/20/16 07:45 98.0 77 140/82 95 11/20/16 07:45 77 11/20/16 06:53 72 11/20/16 05:00 68 11/20/16 04:00 74 11/20/16 03:00 75 132/75 96 11/20/16 03:00 71 11/20/16 02:00 78 11/20/16 01:00 78 11/20/16 00:00 74 11/19/16 23:00 73 11/19/16 23:00 98.6 79 136/74 99 11/19/16 22:00 92 11/19/16 21:00 92 11/19/16 20:00 84 11/19/16 19:00 96.5 79 137/76 97 11/19/16 19:00 85 I/O 11/19/16 11/19/16 11/19/16 11/20/16 11/20/16 11/20/16 07:00 15:00 23:00 07:00 15:00 23:00 Intake Total 240 ml 700 ml 240 ml 960 ml Output Total 300 ml 575 ml 300 ml 520 ml Balance -60 ml 125 ml -60 ml 440 ml Intake Oral 240 ml 700 ml 240 ml 960 ml Output Urine Total 300 ml 575 ml 300 ml 520 ml # Voids 2 # Bowel Movements 1 1 Result Diagram: 11/20/1651211/20/16512 Objective Remarks PHYSICAL EXAMINATION GENERAL: This well-built elderly man who is alert and not dyspneic. HEENT: Head normocephalic. Pupils reactive. Tongue moist. Nasal mucosa injected. Throat was clear. NECK: Supple without venous distension. No thyromegaly. No lymphadenopathy. CHEST: Equal movements with an increased AP diameter. Scar of surgery on the right side. Breath sounds diminished at the periphery. Occ Crackles heard over Right lower chest with a few wheezes anteriorly HEART SOUNDS: Irregular S1 and S2. No murmur. ABDOMEN: Soft, benign. No masses. No organomegaly or tenderness. EXTREMITIES: No edema. NEUROLOGIC: Normal reflexes. There are no gross motor deficits. Assessment and Plan Assessment and Plan IMPRESSION 1. COPD with acute exacerbation 2. Severe emphysema with chronic bronchitis 3. 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 4. Thrombocytopenia. 5. Dehydration. Plan : 1. Continue antibioitcs. and switch to PO in am. 2. O2 at 2L. 3. Nebs qid , duoneb. 4. D/C solumedrol . 5. Symbicort 160/4.5 mcg , 2 puffs bid 6. Add prednisone 20 mg bid 7. Chest X ray in am Nico Miller MD Nov 20, 2016 18:35
[2016-11-20] MEDS: predniSONE 20 MG TAB PO SCH (21:15)
[2016-11-21] VITALS (14 sets, daily range): BP systolic 151–154; BP diastolic 82–97; PULSE 68–99; RESP 18–20; TEMP 98–98.4; O2SAT 95–99
[2016-11-21] MEDS: RESP: ALBUTEROL 2.5 MG/IPRATROPIUM 0.5 MG NEB (SCH) NEB (07:44)
[2016-11-21] MEDS ORDERED: OXYGENTANK NAS.CANULA (08:54)
[2016-11-21] MEDS: BUDESONIDE-FORMOTEROL 160/4.5 MCG INHALER INH SCH (09:00)
[2016-11-21] MEDS: CLOPIDOGREL 75 MG TAB PO SCH (09:28)
[2016-11-21] MEDS: guaiFENesin E.R. 600 MG TAB PO SCH (09:28)
[2016-11-21] MEDS: PANTOPRAZOLE SOD 40 MG DELAYED RELEASE TAB PO SCH (09:28)
[2016-11-21] MEDS: DOXYCYCLINE HYCLATE 100 MG CAP PO SCH (09:28)
[2016-11-21] MEDS: CEFEPIME INJ 2,000 MG in SODIUM CHLORIDE 0.9% INJ 100 ML IV SCH (09:28)
[2016-11-21] MEDS: predniSONE 20 MG TAB PO SCH (09:28)
[2016-11-21] MEDS ORDERED: CEFU1TAB20 PO (10:07)
[2016-11-21] MEDS ORDERED: PRED20 PO (10:07)
[2016-11-21] MEDS ORDERED: DOXY100C PO (10:07)
[2016-11-21] MEDS ORDERED: SYMB160A INH (10:07)
--- NOTE | 2016-11-21 10:08 | HHI.DCPOC ---
Discharge Care Plan Diagnosis: (1) COPD with acute exacerbation (2) Hypoxia (3) Emphysema lung Goals to Promote Your Health * To prevent worsening of your condition and complications * To maintain your health at the optimal level Directions to Meet Your Goals Take your medications as prescribed Follow your dietary instruction Follow activity as directed Keep your appointments as scheduled Take your immunizations and boosters as scheduled If your symptoms worsen call your PCP, if no PCP go to Urgent Care Center or Emergency Room Smoking is Dangerous to Your Health. Avoid second hand smoke Call the 24-hour hour crisis hotline for domestic abuse at Osmin Lowe MD Nov 21, 2016 10:08
--- NOTE | 2016-11-21 10:09 | HHI.DS ---
Discharge Summary Admission Date Nov 17, 2016 at 02:05 Discharge Date: Nov 21, 2016 Admitting Diagnosis COPD, Dyspnea (1) COPD (chronic obstructive pulmonary disease) ICD Code: J44.9 (2) Hypoxia ICD Code: R09.02 (3) Leukocytosis ICD Code: D72.829 (4) Thrombocytopenia ICD Code: D69.6 (5) Dehydration ICD Code: E86.0 Procedures None Brief History - From Admission This is a 71-year-old male with a PMH of COPD, HTN, Prostate CA and h/o TIA who was brought to the ER by EMS secondary to SOB x3 days. Per , pt w/ progressive SOB and non-productive cough x3 days. Denies fever or chills. O2 sat 80's upon EMS arrival, s/p Lasix 80mg IV, NTG and placed on CPAP. On arrival, BP 156/85, HR 107, O2 sat 100% on BiPAP, Afebrile. WBC 13.9. Platelets 140, previously 126 on 04/19/16. GFR 61. BNP 140. CXR with bibasilar subsegmental atelectasis/scarring, lucency and right apex likely emphysematous changes. S/p Solu-Medrol and DuoNeb in ER w/ some improvement. CBC/BMP: 11/20/16 0513 11/20/16 0513 Significant Findings Laboratory Tests Test 11/19/16 11/20/16 05:26 05:13 White Blood Count 11.1 TH/MM3 (4.0-11.0) Platelet Count 146 TH/MM3 118 TH/MM3 (150-450) (150-450) Blood Urea Nitrogen 32 MG/DL (7-18) 29 MG/DL (7-18) Estimat Glomerular Filtration 57 ML/MIN (>89) 63 ML/MIN (>89) Rate Random Glucose 133 MG/DL 108 MG/DL (74-106) (74-106) Carbon Dioxide Level 33.0 MEQ/L (21.0-32.0) Anion Gap 4 MEQ/L (5-15) Imaging Last Impressions Chest X-Ray 11/16/16 2232 Signed Impressions: Service Date/Time: Wednesday, November 16, 2016 22:31 - CONCLUSION: 1. Bibasilar subsegmental atelectasis/scarring. 2. Lucency in the right apex likely emphysematous changes. Rogelio Walton MD PE at Discharge GENERAL: Elderly male in no apparent distress. CARDIOVASCULAR: Normal rate and regular rhythm without murmurs, gallops, or rubs. RESPIRATORY: Good respiratory efforts. Diminished breath sounds at the bases. Otherwise clear to auscultation. GASTROINTESTINAL: Abdomen soft, non-tender, non-distended. Normal active bowel sounds MUSCULOSKELETAL: Extremities without cyanosis, or edema. NEURO: Alert & Oriented x4 to person, place, time, situation. Moves all ext x4 PSYCH: Appropriate mood and affect. Pt update on day of discharge Patient reports he is feeling better. Shortness of breath improved. Coughing less. Feeling closer to his baseline. Hospital Course 71-year-old male admitted with COPD exacerbation and hypoxemia. Evaluation and treatment course detailed below: COPD exacerbation with hypoxemia: Oxygen saturation 80% on EMS arrival. Status post BiPAP. Patient was followed by pulmonology. He was treated with Solu- Medrol, breathing treatments, Symbicort, Mucinex. Cefepime and doxycycline were also added. Sputum culture grew Moraxella catarrhalis. He is discharged on Symbicort, prednisone, oral antibiotics completed the treatment course. He does require home oxygen. The patient will follow-up outpatient with his plastic surgery coordinator. Case discussed with Dr. Bravo on the day of discharge.. History of prostate cancer: Advised outpatient follow-up. 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 Pt Condition on Discharge: Good Discharge Disposition: Discharge Home Discharge Time: <= 30 minutes Discharge Instructions DIET: Follow Instructions for: Heart Healthy Diet Activities you can perform: Regular-No Restrictions Follow up Referrals: Pulmonology - 2 Weeks with Nico Miller MD New Medications: Cefuroxime (Cefuroxime) 500 Mg Tab 500 MG PO BID Infection #14 Ref 0 TAB Doxycycline Hyclate (Doxycycline Hyclate) 100 Mg Cap 100 MG PO BID Infection #14 Ref 0 CAP Oxygen tank (Oxygen tank) 1 Ea Tank 2 LITER VARSHA.CANULA CONTINUOUS Oxygen Concentrator Portable Gaseous 2 L/min via Nasal Cannula Continuous For 99 months HYPOXEMIA PREVENTION #1 CYLINDER Prednisone (Prednisone) 20 Mg Tab 40 MG PO DAILY Take 40 mg (2 tablets) daily for 5 days #10 Ref 0 TAB Budesonide-Formoterol Inh (Symbicort Inh) 160-4.5 Mcg/Act Aero 1 PUFF INH Q12HR #10 INHALER Continued Medications: Cholecalciferol (Vitamin D-3) 2,000 Unit Tab 2000 UNITS PO DAILY Clopidogrel (Plavix) 75 Mg Tab 75 MG PO DAILY Blood Clot Prevention #90 Ref 1 TAB Cyanocobalamin ER (Vitamin B-12 Cr) 1,000 Mcg Tab 2000 MCG PO DAILY Nutritional Supplement #1 Ref 0 BOTTLE Guaifenesin ER 12 HR (Mucinex Maximum Strength ER 12 HR) 1,200 Mg Kathleen 1200 MG PO BID Chest Congestion/Cough Ref 0 TAB Ipratropium-Albuterol Inh (Combivent Respimat Inh) 20-100 Fdc/Act Aero 1 PUFF INH QID Asthma Management #1 Ref 0 INHALER Pantoprazole (Pantoprazole) 40 Mg Tab 40 MG PO DAILY Reflux #90 Ref 1 TAB Simvastatin (Simvastatin) 20 Mg Tab 20 MG PO HS Cholesterol Management #30 Ref 0 TAB Osmin Lowe MD Nov 21, 2016 10:08
--- NOTE | 2016-11-21 12:26 | HHI.PR ---
Subjective Remarks Feels much better. On O2 2 L. No chest pain No fever. SOB better Objective Vital Signs Date Time Temp Pulse Resp B/P Pulse Ox O2 Delivery O2 Flow Rate FiO2 11/21/16 11:28 98.2 80 18 152/91 95 11/21/16 11:28 80 11/21/16 07:46 97 Nasal Cannula 2.00 11/21/16 07:26 98.4 81 18 154/82 96 11/21/16 07:26 76 11/21/16 06:00 68 11/21/16 05:00 72 11/21/16 04:00 68 11/21/16 03:00 79 11/21/16 03:00 98.0 82 20 151/97 99 11/21/16 02:00 74 11/21/16 01:00 84 11/21/16 00:00 80 11/20/16 23:00 97.9 87 18 158/96 97 11/20/16 23:00 86 11/20/16 22:00 80 11/20/16 21:00 80 11/20/16 20:43 95 Nasal Cannula 2.00 11/20/16 20:00 86 11/20/16 19:00 98.1 90 20 159/89 97 11/20/16 19:00 83 11/20/16 18:25 91 11/20/16 17:29 92 11/20/16 16:02 91 11/20/16 15:34 81 11/20/16 15:34 98.0 81 120/59 97 11/20/16 14:15 85 11/20/16 13:42 87 11/20/16 12:26 80 I/O 11/20/16 11/20/16 11/20/16 11/21/16 11/21/16 11/21/16 07:00 15:00 23:00 07:00 15:00 23:00 Intake Total 240 ml 960 ml 580 ml Output Total 300 ml 520 ml 375 ml Balance -60 ml 440 ml 205 ml Intake Oral 240 ml 960 ml 480 ml IV Total 100 ml Output Urine Total 300 ml 520 ml 375 ml # Voids 2 # Bowel Movements 1 0 Result Diagram: 11/20/16 0513 11/20/16 0513 Objective Remarks PHYSICAL EXAMINATION GENERAL: This well-built elderly man who is alert and not dyspneic. HEENT: Head normocephalic. Pupils reactive. Tongue moist. Nasal mucosa injected. Throat was clear. NECK: Supple without venous distension. No thyromegaly. No lymphadenopathy. CHEST: Equal movements with an increased AP diameter. Scar of surgery on the right side. Breath sounds diminished at the periphery. Occ wheezes anteriorly HEART SOUNDS: Irregular S1 and S2. No murmur. ABDOMEN: Soft, benign. No masses. No organomegaly or tenderness. EXTREMITIES: No edema. NEUROLOGIC: Normal reflexes. There are no gross motor deficits. Assessment and Plan Assessment and Plan IMPRESSION 1. COPD with acute exacerbation 2. Severe emphysema with chronic bronchitis 3. 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 4. Thrombocytopenia. 5. Dehydration. Plan : 1. Continue antibioitcs. and switch to PO 2. O2 at 2L. 3. Nebs qid , duoneb. 4. OK to go home 5. Symbicort 160/4.5 mcg , 2 puffs bid 6. prednisone 20 mg bid and taper 7. Will see in 4 weeks Nico Miller MD Nov 21, 2016 12:26
== END 2016-11-21 13:22 | disposition home or self-care (01) | DRG 190 ==
LOC: NEPC 22:25 → NEDH 11-17 01:54 → OBSVTOIN 11-17 02:05 → HCIS 11-18 10:10
PROVIDERS: ADMIT Family Medicine; ATTEND Family Medicine
DX: J44.1 Chronic obstructive pulmonary disease with (acute) exacerbation (principal); J96.21 Acute and chronic respiratory failure with hypoxia; D69.6 Thrombocytopenia, unspecified; E86.0 Dehydration; Z90.2 Acquired absence of lung [part of]; J98.11 Atelectasis; I10 Essential (primary) hypertension; D72.829 Elevated white blood cell count, unspecified; Z86.73 Personal history of transient ischemic attack (TIA), and cerebral infarction without residual deficits; Z85.46 Personal history of malignant neoplasm of prostate; E78.00 Pure hypercholesterolemia, unspecified; Z87.891 Personal history of nicotine dependence
CPT/HCPCS: 36600; 71010; 80048; 80053; 82550; 82805; 83880; 84484; 85025; 85027; 87070; 87205; 93005; 94002; 94003; 94150; 94620; 94640; 94664; 96374; J0692; J1650; J2920; J2930; J7512

== ENCOUNTER → 2017-07-20 | Outpatient (CLI) | payer MEDICARE, BC ==
[~2017-07-20] MED LIST changes: +OXYGENTANK NAS.CANULA; +SYMB160A INH; +[UNRECOGNIZED DRUG - CODE] IM
[2017-07-20 11:17] LABS: BLOOD GAS BASE EXCESS 1.9 mmol/L (-2-2); BLOOD GAS CARBOXYHEMOGLOBIN 1.6 % (0-4); BLOOD GAS HCO3 26 mmol/L (22-26); BLOOD GAS METHEMOGLOBIN 0.7 % (0-2); BLOOD GAS O2 HGB SATURATION 95 % (90-100); BLOOD GAS OXYGEN CONTENT 21.8 Vol % (12.0-20.0); BLOOD GAS PCO2 37 mmHG (38-42); BLOOD GAS PO2 75 mmHG (61-120); BLOOD GAS TOTAL HGB 16.3 G/DL (12.0-16.0); TEMP CORR TO 98.6
[2017-07-20 11:18] LABS: CRITICAL VALUE NO; DRAW SITE RT BRACHIAL; FIO2 21 %; NUMBER OF ARTERIAL PUNCTURES 4; OXYGEN DEVICE ROOM AIR; STAT NO; ULNAR PULSE Y
--- NOTE | 2017-07-22 10:40 | RSPPFT ---
DATE OF PROCEDURE: 07/20/17 COMMENTS: VOLUMES DYNAMIC: FVC normal; FEV1 severely reduced. STATIC: TLC normal; FRC and RV mildly to moderately increased. FLOWS: FEV1% and FEF 25-75 severely reduced. DIFFUSION: Severely reduced. FLOW VOLUME LOOP: Pattern of variable intrathoracic airways obstruction. IMPRESSION: Severe obstructive ventilatory defect with a severe reduction in diffusion and hyperinflation. Airways resistance is increased. There is minimal change post-bronchodilator.
== END ==
LOC: PHRSP 10:23
PROVIDERS: ATTEND Internal Medicine
DX: R06.02 Shortness of breath (principal)
CPT/HCPCS: 36600; 82805; 94060; 94726; 94729

== ENCOUNTER 2017-09-04 10:11 | Inpatient (IN) | payer MEDICARE, BC ==
[2017-09-04] VITALS (8 sets, daily range): BP systolic 110–143; BP diastolic 55–82; PULSE 80–118; RESP 20–30; TEMP 98.3–103.1; O2SAT 93–97
[~2017-09-04] VITALS: Ht 177.8 cm; Wt 94.5 kg
[~2017-09-04 10:11] MED LIST changes: -[UNRECOGNIZED DRUG - CODE] IM
[2017-09-04] MEDS ORDERED: CEFEPIME INJ 2,000 MG in SODIUM CHLORIDE 0.9% INJ 100 ML IV STA (10:51)
[2017-09-04] MEDS ORDERED: AZITHROMYCIN INJ 500 MG in SODIUM CHLOR 0.9% 250 ML INJ 250 ML IV STA (10:51)
--- NOTE | 2017-09-04 10:54 | PD ---
HPI Chief Complaint: Respiratory Symptoms Time Seen by Provider: 10:51 Travel History International Travel<30 days: No Contact w/Intl Traveler<30days: No Traveled to known affect area: No History of Present Illness HPI 72-year-old male patient with history of COPD, presents to the ER today with shortness of breath starting last night, coughing, fever 103. 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 He states that he has had if occult T with his nebulizers at home due to the way he is breathing. He denies any chest pains, vomiting, diarrhea, or any other symptoms. He does not know any sick contacts. Modifying Factors: None Associated Signs & Symptoms: Coughing, shortness of breath, fevers Risk Factors: COPD history PFSH Past Medical History Hx Anticoagulant Therapy: Yes Anxiety: No Depression: No Cancer: Yes (PROSTATE) Cardiovascular Problems: Yes (Heart murmur) High Cholesterol: Yes Congestive Heart Failure: No COPD: Yes (Emphysema ) Cerebrovascular Accident: Yes (TIA) Coronary Artery Disease: No Diabetes: No Diminished Hearing: No Endocrine: No Gastrointestinal Disorders: No Genitourinary: No Hepatitis: No Hiatal Hernia: No Hypertension: Yes Immune Disorder: No Musculoskeletal: No Neurologic: Yes (TIA 1994) Psychiatric: No Respiratory: Yes (COPD, LOBECTOMY RIGHT LOWER LUNG) Immunizations Current: Yes Thyroid Disease: Yes (S/P PTL THYROIDECTOMY FOR HYPER) ?: Not Past Surgical History Abdominal Surgery: Yes (Appendix) AICD: No Appendectomy: Yes Body Medical Devices: [employer]. [employer] Cardiac Surgery: No Endocrine Surgery: Yes (Partial thyroid removal) Eye Surgery: Yes (Cataracts) Joint Replacement: No Pacemaker: No Thoracic Surgery: Yes (Right upper partial lobectomy) Other Surgery: Yes (R Partial Lobectomy December 25, 2015, thyroid removal 2010 ) Social History Alcohol Use: No Tobacco Use: No (Former smoker, quit December 2015) Substance Use: No Allergies-Medications (Allergen,Severity, Reaction): Coded Allergies: No Known Allergies (Verified Allergy, Unknown, 09/04/17) Reported Meds & Prescriptions Reported Meds & Active Scripts Active Plavix (Clopidogrel Bisulfate) 75 Mg Tab 75 Mg PO DAILY Oxygen tank (Oxygen) 1 Ea Tank 2 Liter VARSHA.CANOutTrippin CONTINUOUS Oxygen Concentrator Portable Gaseous 2 L/min via Nasal Cannula Continuous For 99 months Pantoprazole (Pantoprazole Sodium) 40 Mg Tab 40 Mg PO DAILY Reported Anoro Ellipta Inh (Umeclidinium/Vilanterol) 62.5-25 Mcg/Act Aero 1 Puff INH DAILY Simvastatin 20 Mg Tab 20 Mg PO HS Vitamin D-3 (Cholecalciferol) 2,000 Unit Tab 2,000 Units PO DAILY Vitamin B-12 Cr (Cyanocobalamin) 1,000 Mcg Tab 2,000 Mcg PO DAILY Review of Systems Except as stated in HPI: all other systems reviewed are Neg Physical Exam Narrative GENERAL: Well-developed elderly white male patient currently in moderate respiratory distress. Awake and oriented 3. SKIN: Focused skin assessment warm/dry. HEAD: Atraumatic. Normocephalic. EYES: Pupils equal and round. No scleral icterus. No injection or drainage. ENT: No nasal bleeding or discharge. Mucous membranes pink and moist. NECK: Trachea midline. No JVD. Supple. CARDIOVASCULAR: Regular rate and rhythm. No murmur appreciated. RESPIRATORY: Moderate accessory muscle use. Decreased to auscultation throughout bilaterally. Breath sounds equal bilaterally. GASTROINTESTINAL: Abdomen soft, non-tender, nondistended. Hepatic and splenic margins not palpable. MUSCULOSKELETAL: No obvious deformities. No clubbing. No cyanosis. No edema. NEUROLOGICAL: Awake and alert. No obvious cranial nerve deficits. Motor grossly within normal limits. Normal speech. PSYCHIATRIC: Appropriate mood and affect; insight and judgment normal. Data Data Last Documented VS Vital Signs Date Time Temp Pulse Resp B/P (MAP) Pulse Ox O2 Delivery O2 Flow Rate FiO2 09/04/17 12:19 100.5 104 24 114/57 (76) 95 Nasal Cannula 3.00 Orders Orders Sepsis Workup Initiated (09/04/17 ) Complete Blood Count With Diff (09/04/17 10:28) Comprehensive Metabolic Panel (09/04/17 10:28) Lactic Acid Sepsis Protocol (09/04/17 10:28) Urinalysis - C+S If Indicated (09/04/17 10:28) Influenzae A/B Antigen (09/04/17 10:28) Blood Culture (09/04/17 10:28) Chest, Single Ap (09/04/17 10:28) Blood Glucose (09/04/17 10:28) Ecg Monitoring (09/04/17 10:28) Iv Access Insert/Monitor (09/04/17 10:28) Oximetry (09/04/17 10:28) Oxygen Administration (09/04/17 10:28) Cefepime Inj (Maxipime Inj) (09/04/17 10:51) Azithromycin Inj (Zithromax Inj) (09/04/17 10:51) Methylprednisolone So Succ Inj (Solumedr (09/04/17 11:00) Albuterol-Ipratropium Neb (Duoneb Neb) (09/04/17 11:00) Arterial Blood Gas (Abg) (09/04/17 ) Sodium Chlor 0.9% 1000 Ml Inj (Ns 1000 M (09/04/17 11:30) Acetaminophen (Tylenol) (09/04/17 11:30) Labs Laboratory Tests Test 09/04/17 10:30 09/04/17 11:06 White Blood Count 12.3 TH/MM3 Red Blood Count 5.12 MIL/MM3 Hemoglobin 15.5 GM/DL Hematocrit 46.6 % Mean Corpuscular Volume 91.1 FL Mean Corpuscular Hemoglobin 30.3 PG Mean Corpuscular Hemoglobin Concent 33.2 % Red Cell Distribution Width 14.5 % Platelet Count 140 TH/MM3 Mean Platelet Volume 9.8 FL Neutrophils (%) (Auto) 90.0 % Lymphocytes (%) (Auto) 2.5 % Monocytes (%) (Auto) 7.2 % Eosinophils (%) (Auto) 0.1 % Basophils (%) (Auto) 0.2 % Neutrophils # (Auto) 11.0 TH/MM3 Lymphocytes # (Auto) 0.3 TH/MM3 Monocytes # (Auto) 0.9 TH/MM3 Eosinophils # (Auto) 0.0 TH/MM3 Basophils # (Auto) 0.0 TH/MM3 CBC Comment DIFF FINAL Differential Comment Blood Urea Nitrogen 14 MG/DL Creatinine 1.45 MG/DL Random Glucose 168 MG/DL Total Protein 7.0 GM/DL Albumin 3.3 GM/DL Calcium Level 9.3 MG/DL Alkaline Phosphatase 63 U/L Aspartate Amino Transf (AST/SGOT) 39 U/L Alanine Aminotransferase (ALT/SGPT) 44 U/L Total Bilirubin 1.6 MG/DL Sodium Level 137 MEQ/L Potassium Level 4.4 MEQ/L Chloride Level 105 MEQ/L Carbon Dioxide Level 24.1 MEQ/L Anion Gap 8 MEQ/L Estimat Glomerular Filtration Rate 48 ML/MIN Lactic Acid Level 1.8 mmol/L Blood Gas Puncture Site RT RADIAL Blood Gas Patient Temperature 98.6 Blood Gas HCO3 22 mmol/L Blood Gas Base Excess -0.5 mmol/L Blood Gas Oxygen Saturation 96 % Arterial Blood pH 7.50 Arterial Blood Partial Pressure CO2 29 mmHg Arterial Blood Partial Pressure O2 83 mmHG Arterial Blood Oxygen Content 21.3 Vol % Arterial Blood Carboxyhemoglobin 1.7 % Arterial Blood Methemoglobin 0.5 % Blood Gas Hemoglobin 15.7 G/DL Oxygen Delivery Device NASAL CANNULA Blood Gas Liter Flow 3 L/M [facility] Medical Decision Making Medical Screen Exam Complete: Yes Emergency Medical Condition: Yes Medical Record Reviewed: Yes Interpretation(s) EKG shows sinus tachycardia at a rate of 180 bpm with frequent PVCs. No signs of acute ST-T changes. Laboratory Tests Test 09/04/17 10:30 09/04/17 11:06 White Blood Count 12.3 TH/MM3 (4.0-11.0) Platelet Count 140 TH/MM3 (150-450) Neutrophils (%) (Auto) 90.0 % (16.0-70.0) Lymphocytes (%) (Auto) 2.5 % (9.0-44.0) Neutrophils # (Auto) 11.0 TH/MM3 (1.8-7.7) Lymphocytes # (Auto) 0.3 TH/MM3 (1.0-4.8) Creatinine 1.45 MG/DL (0.60-1.30) Random Glucose 168 MG/DL (74-106) Albumin 3.3 GM/DL (3.4-5.0) Aspartate Amino Transf (AST/SGOT) 39 U/L (15-37) Total Bilirubin 1.6 MG/DL (0.2-1.0) Estimat Glomerular Filtration Rate 48 ML/MIN (>89) Arterial Blood pH 7.50 (7.380-7.420) Arterial Blood Partial Pressure CO2 29 mmHg (38-42) Arterial Blood Oxygen Content 21.3 Vol % (12.0-20.0) Last 24 hours Impressions Chest X-Ray 09/04/17 1028 Signed Impressions: Service Date/Time: Monday, September 04, 2017 10:43 - CONCLUSION: 1. Patchy peripheral airspace disease throughout the right lung concerning for multilobar pneumonia/atypical infection. Reid Lai MD Differential Diagnosis COPD exacerbation versus influenza pneumonitis versus pneumonia versus CHF versus sepsis Narrative Course Chest x-ray shows significant right sided pneumonia. IV antibiotic were initiated after cultures were drawn. Patient was also given Solu-Medrol and nebulizers for his shortness of breath with some improvement in breathing. At this point, my plan would be to admit the patient for further treatment. Case is discussed with Dr. Espinal for admission. Diagnosis Primary Impression: COPD with acute exacerbation Additional Impression: Pneumonia Admitting Information Admitting Physician Requests: Admit Ileana Smith MD Sep 04, 2017 10:54
[2017-09-04] MEDS ORDERED: methylPREDNISolone SOD SUCC 125 MG/2 ML VIAL IV PUSH ONE (11:00)
[2017-09-04] MEDS: RESP: ALBUTEROL 2.5 MG/IPRATROPIUM 0.5 MG NEB (SCH) INH (11:03)
[2017-09-04 11:20] LABS: BASOPHIL % 0.2 % (0.0-2.0); EOSINOPHIL % 0.1 % (0.0-4.0); HEMATOCRIT 46.6 % (39.0-51.0); HEMOGLOBIN 15.5 GM/DL (13.0-17.0); LYMPH % 2.5 % (9.0-44.0); LYMPHOCYTE # 0.3 TH/MM3 (1.0-4.8); MEAN CELL VOLUME 91.1 FL (80.0-100.0); MEAN CORPUSCULAR HEMOGLOBIN 30.3 PG (27.0-34.0); MEAN CORPUSCULAR HGB CONC 33.2 % (32.0-36.0); MEAN PLATELET VOLUME 9.8 FL (7.0-11.0); MONO % 7.2 % (0.0-8.0); MONOCYTE # 0.9 TH/MM3 (0-0.9); PLATELET COUNT 140 TH/MM3 (150-450); RED BLOOD COUNT 5.12 MIL/MM3 (4.50-5.90); RED CELL DISTRIBUTION WIDTH 14.5 % (11.6-17.2); WHITE BLOOD COUNT 12.3 TH/MM3 (4.0-11.0)
--- NOTE | 2017-09-04 11:28 | RADRPT ---
EXAM DATE/TIME: 09/04/2017 10:43 [facility] COMPARISON: CHEST SINGLE AP, November 16, 2016, 22:31. INDICATIONS : Cough, shortness of breath, fever. MEDICAL HISTORY : Chronic obstructive pulmonary disease. Non tuberculosis mycobacterium. SURGICAL HISTORY : Right upper lobe removed. ENCOUNTER: Initial ACUITY: 2 days PAIN SCORE: 0/10 LOCATION: Bilateral chest FINDINGS: Ill-defined patchy peripheral airspace disease throughout the right lung with some sparing of the ape x. Left lung is clear. Cardiomediastinal contours are stable. Remainder of exam is unchanged. CONCLUSION: 1. Patchy peripheral airspace disease throughout the right lung concerning for multilobar pneumonia/a typical infection. Reid Lai MD on September 04, 2017 at 11:24 Board Certified Radiologist. This report was verified electronically.
[2017-09-04] MEDS ORDERED: SODIUM CHLOR 0.9% 1000 ML INJ 1,000 ML IV ONE (11:30)
[2017-09-04] MEDS ORDERED: ACETAMINOPHEN 325 MG TAB PO ONE (11:30)
[2017-09-04 11:46] LABS: ALBUMIN 3.3 GM/DL (3.4-5.0); ALT (GPT) 44 U/L (12-78); AST (GOT) 39 U/L (15-37); BICARBONATE 24.1 MEQ/L (21.0-32.0); BLOOD UREA NITROGEN 14 MG/DL (7-18); CALCIUM 9.3 MG/DL (8.5-10.1); CHLORIDE 105 MEQ/L (98-107); CREATININE 1.45 MG/DL (0.60-1.30); GLOMERULAR FILTRATION RATE 48 ML/MIN (>89); GLUCOSE,RANDOM 168 MG/DL (74-106); SODIUM (NA) 137 MEQ/L (136-145)
[2017-09-04] MEDS ORDERED: UMEC1AER INH (11:48)
[2017-09-04 11:49] LABS: ALKALINE PHOSPHATASE 63 U/L (45-117); TOTAL BILIRUBIN ADULT 1.6 MG/DL (0.2-1.0)
[2017-09-04] MEDS ORDERED: ONDANSETRON HCL 4 MG/2 ML VIAL IV PUSH PRN (13:00)
[2017-09-04] MEDS ORDERED: ACETAMINOPHEN 325 MG TAB PO PRN (13:00)
[2017-09-04] MEDS ORDERED: SODIUM CHLORIDE 0.9% FLUSH 10 ML FLUSH IV FLUSH PRN (13:00)
--- NOTE | 2017-09-04 13:21 | HHI.HP ---
[facility] Randee Bobo MD Admission Diagnosis shortness of breath/pneumonia Diagnoses: Travel History International Travel<30 Days: No Contact w/Intl Traveler <30 Da: No Traveled to Known Affected Are: No History of Present Illness 72-year-old male with a past medical history significant for COPD, hypertension , hyperlipidemia and history of TIA presents to the emergency department with increasing shortness of breath, productive cough and fevers. The patient reports his symptoms started last night when he had an increase in sputum production with his regular cough. He states his fever was as high as 102 this morning. He endorses fevers and chills. He states he has had to use his home oxygen continuously and was still feeling short of breath despite this. Additionally, the patient complains of abdominal pain, worse in the right upper quadrant. He states he was recently told he has gallstones. On arrival to the emergency department his temperature was 103.1, pulse 118, respiratory rate 26, BP 143/67 pulse ox 93% on 3 L nasal cannula. 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 Bilateral wrist surgeries Appendectomy Reported Medications Reported Meds & Active Scripts Active Plavix (Clopidogrel Bisulfate) 75 Mg Tab 75 Mg PO DAILY Oxygen tank (Oxygen) 1 Ea Tank 2 Liter VARSHA.CANULA CONTINUOUS Oxygen Concentrator Portable Gaseous 2 L/min via Nasal Cannula Continuous For 99 months Pantoprazole (Pantoprazole Sodium) 40 Mg Tab 40 Mg PO DAILY Reported Anoro Ellipta Inh (Umeclidinium/Vilanterol) 62.5-25 Mcg/Act Aero 1 Puff INH DAILY Simvastatin 20 Mg Tab 20 Mg PO HS Vitamin D-3 (Cholecalciferol) 2,000 Unit Tab 2,000 Units PO DAILY Vitamin B-12 Cr (Cyanocobalamin) 1,000 Mcg Tab 2,000 Mcg PO DAILY Allergies: Coded Allergies: No Known Allergies (Verified Allergy, Unknown, 09/04/17) Family History Both parents with CAD. Social History Quit tobacco 2 years ago. Smoked approximately 2-3 packs for 50 years. Denies alcohol or illicit drugs. Physical Exam Vital Signs Vital Signs Date Time Temp Pulse Resp B/P (MAP) Pulse Ox O2 Delivery O2 Flow Rate FiO2 09/04/17 12:19 100.5 104 24 114/57 (76) 95 Nasal Cannula 3.00 09/04/17 11:43 117 30 142/82 (102) 95 Nasal Cannula 3.00 09/04/17 11:43 95 3.00 09/04/17 11:00 95 Nasal Cannula 3.00 09/04/17 10:26 114 33 94 Nasal Cannula 3.00 09/04/17 10:24 143/67 (92) 09/04/17 10:18 103.1 118 26 93 Physical Exam GENERAL: male lying in bed, using accessory muscles to breathe SKIN: No rashes, ecchymoses or lesions. Cool and dry. HEAD: Atraumatic. Normocephalic. No temporal or scalp tenderness. EYES: Pupils equal round and reactive. Extraocular motions intact. No scleral icterus. No injection or drainage. ENT: Nose without bleeding, purulent drainage or septal hematoma. Throat without erythema, tonsillar hypertrophy or exudate. Uvula midline. Airway patent. NECK: Trachea midline. No JVD or lymphadenopathy. Supple, nontender, no meningeal signs. CARDIOVASCULAR: Regular rate and rhythm without murmurs, gallops, or rubs. RESPIRATORY: Wheezes and rhonchi bilaterally. GASTROINTESTINAL: Abdomen soft. Mildly distended. Tenderness to palpation in the right upper quadrant. No hepato-splenomegaly, or palpable masses. No guarding. MUSCULOSKELETAL: Extremities without clubbing, cyanosis, or edema. No joint tenderness, effusion, or edema noted. No calf tenderness. NEUROLOGICAL: Awake and alert. Cranial nerves II through XII intact. Motor and sensory grossly within normal limits. Normal speech. Laboratory Laboratory Tests Test 09/04/17 10:30 09/04/17 11:06 White Blood Count 12.3 Red Blood Count 5.12 Hemoglobin 15.5 Hematocrit 46.6 Mean Corpuscular Volume 91.1 Mean Corpuscular Hemoglobin 30.3 Mean Corpuscular Hemoglobin Concent 33.2 Red Cell Distribution Width 14.5 Platelet Count 140 Mean Platelet Volume 9.8 Neutrophils (%) (Auto) 90.0 Lymphocytes (%) (Auto) 2.5 Monocytes (%) (Auto) 7.2 Eosinophils (%) (Auto) 0.1 Basophils (%) (Auto) 0.2 Neutrophils # (Auto) 11.0 Lymphocytes # (Auto) 0.3 Monocytes # (Auto) 0.9 Eosinophils # (Auto) 0.0 Basophils # (Auto) 0.0 CBC Comment DIFF FINAL Differential Comment Blood Urea Nitrogen 14 Creatinine 1.45 Random Glucose 168 Total Protein 7.0 Albumin 3.3 Calcium Level 9.3 Alkaline Phosphatase 63 Aspartate Amino Transf (AST/SGOT) 39 Alanine Aminotransferase (ALT/SGPT) 44 Total Bilirubin 1.6 Sodium Level 137 Potassium Level 4.4 Chloride Level 105 Carbon Dioxide Level 24.1 Anion Gap 8 Estimat Glomerular Filtration Rate 48 Lactic Acid Level 1.8 Blood Gas Puncture Site RT RADIAL Blood Gas Patient Temperature 98.6 Blood Gas HCO3 22 Blood Gas Base Excess -0.5 Blood Gas Oxygen Saturation 96 Arterial Blood pH 7.50 Arterial Blood Partial Pressure CO2 29 Arterial Blood Partial Pressure O2 83 Arterial Blood Oxygen Content 21.3 Arterial Blood Carboxyhemoglobin 1.7 Arterial Blood Methemoglobin 0.5 Blood Gas Hemoglobin 15.7 Oxygen Delivery Device NASAL CANNULA Blood Gas Liter Flow 3 Date/Time Source Procedure Growth Status 09/04/17 10:40 Blood Peripheral Aerobic Blood Culture Pending Received 09/04/17 10:40 Blood Peripheral Anaerobic Blood Culture Pending Received 09/04/17 10:56 Nasal Washing Influenza Types A,B Antigen (JJ) - Final NEGATIVE FOR FLU A AND B ANTIGEN.... Complete Result Diagram: 09/04/17 1030 09/04/17 1030 Caprini VTE Risk Assessment Caprini VTE Risk Assessment: Mod/High Risk (score >= 2) Caprini Risk Assessment Model Point Value = 1 Point Value = 2 Point Value = 3 Point Value = 5 Age 41-60 Minor surgery BMI > 25 kg/m2 Swollen legs Varicose veins or History of unexplained or recurrent spontaneous Oral contraceptives or hormone replacement Sepsis (< 1 month) Serious lung disease, including pneumonia (< 1 month) Abnormal pulmonary function Acute myocardial infarction Congestive heart failure (< 1 month) History of inflammatory bowel disease Medical patient at bed rest Age 61-74 Arthroscopic surgery Major open surgery (> 45 min) Laparoscopic surgery (> 45 min) Malignancy Confined to bed (> 72 hours) Immobilizing plaster cast Central venous access Age >= 75 History of VTE Family history of VTE Factor V Leiden Prothrombin [id number] Lupus anticoagulant Anticardiolipin antibodies Elevated serum homocysteine Heparin-induced thrombocytopenia Other congenital or acquired thrombophilia Stroke (< 1 month) Elective arthroplasty Hip, pelvis, or leg fracture Acute spinal cord injury (< 1 month) Prophylaxis Regimen Total Risk Factor Score Risk Level Prophylaxis Regimen 0-1 Low Early ambulation 2 Moderate Order ONE of the following: *Sequential Compression Device (SCD) *Heparin 5000 units SQ BID 3-4 Higher Order ONE of the following medications: *Heparin 5000 units SQ TID *Enoxaparin/Lovenox 40 mg SQ daily (WT < 150 kg, CrCl > 30 mL/min) *Enoxaparin/Lovenox 30 mg SQ daily (WT < 150 kg, CrCl > 10-29 mL/min) *Enoxaparin/Lovenox 30 mg SQ BID (WT < 150 kg, CrCl > 30 mL/min) AND/OR *Sequential Compression Device (SCD) 5 or more Highest Order ONE of the following medications: *Heparin 5000 units SQ TID (Preferred with Epidurals) *Enoxaparin/Lovenox 40 mg SQ daily (WT < 150 kg, CrCl > 30 mL/min) *Enoxaparin/Lovenox 30 mg SQ daily (WT < 150 kg, CrCl > 10-29 mL/min) *Enoxaparin/Lovenox 30 mg SQ BID (WT < 150 kg, CrCl > 30 mL/min) AND *Sequential Compression Device (SCD) Assessment and Plan Assessment and Plan Assessment/plan: 1. Community-acquired pneumonia/COPD/hypoxia Patient with leukocytosis of 12.3, febrile to 103, requiring 3 L nasal cannula Chest x-ray significant for patchy peripheral airspace disease throughout the right lung concerning for multilobar pneumonia, images reviewed by Rocephin/azithromycin DuoNebs IV steroids Continue home Anoro Pneumococcal, Legionella urinary antigens pending Sputum culture pending Blood cultures pending Patient's supervisor estimator and drafter is Dr. Shrestha, consulted, appreciate recommendations 2. Right upper quadrant pain/history of gallstones Total bilirubin mildly elevated at 1.6 Ultrasound gallbladder pending 3. JA Creatinine 1.45, baseline 1.1-1.2 IV fluid hydration Avoid nephrotoxic agents Monitor renal function 4. Hyperlipidemia/GERD Continue home medications 5. History of TIA Continue home Plavix 6. Hypertension Patient reports history of hypertension however is not on any antihypertensives at home Normotensive at this time Monitor blood pressure FEN Heart healthy diet NS at 100 cc/hr Electrolytes: monitor and replete prn Heparin Physician Certification 2 Midnight Certification Type: Admission for Inpatient Services Order for Inpatient Services The services are ordered in accordance with Medicare regulations or non- Medicare payer requirements, as applicable. In the case of services not specified as inpatient-only, they are appropriately provided as inpatient services in accordance with the 2-midnight benchmark. Estimated LOS (days): 2 2 days is the estimated time the patient will need to remain in the hospital, assuming treatment plan goals are met and no additional complications. Post-Hospital Plan: Not yet determined Gloria Espinal MD Sep 04, 2017 13:21
--- NOTE | 2017-09-04 14:17 | RADRPT ---
EXAM DATE/TIME: 09/04/2017 13:26 [facility] COMPARISON: CT ABDOMEN & PELVIS W CONTRAST, April 17, 2016, 22:38. INDICATIONS : Right upper quadrant pain. MEDICAL HISTORY : Hypercholesterolemia. Hypertension. Chronic obstructive pulmonary disease. TIA. Prostate cancer. SURGICAL HISTORY : Thyroidectomy. Appendectomy. Cataract removed. Lobectomy, right lower lung. Orthopedic surgery, judit ateral wrist. ENCOUNTER: Initial ACUITY: 2 months PAIN SCORE: 4/10 LOCATION: Right upper quadrant MEASUREMENTS: LIVER: 19.1 cm length COMMON DUCT: 4 mm RIGHT KIDNEY: 11.7 x 5.2 x 5.8 cm FINDINGS: Limited examination due to overlying bowel gas and patient's body habitus. LIVER: Normal echotexture without focal lesion or ductal dilatation. COMMON DUCT: No filling defects and normal in caliber. GALLBLADDER: Gallbladder is decompressed with multiple layering gallstones. Trace pericholecystic fluid with bladd er wall thickening. Sonographic Rocha's sign reported by the technologist. PANCREAS: Limited visualization of the pancreatic head which appears grossly unremarkable. RIGHT KIDNEY: No evidence of hydronephrosis, stone, or mass. CONCLUSION: 1. Cholelithiasis with sonographic findings concerning for early acute cholecystitis. Consider HIDA s can if there is continued clinical uncertainty. Reid Lai MD on September 04, 2017 at 14:11 Board Certified Radiologist. This report was verified electronically.
[2017-09-04] MEDS: HEPARIN SODIUM - SQ 10,000 UNITS/ML VIAL SQ SCH ×2 (15:00→23:30)
[2017-09-04] MEDS: SODIUM CHLOR 0.9% 1000 ML INJ 1,000 ML IV SCH (17:29)
[2017-09-04] MEDS: RESP: ALBUTEROL 2.5 MG/IPRATROPIUM 0.5 MG NEB (PRN) INH ×2 (18:05→20:12)
[2017-09-04 18:19] LABS: BILIRUBIN, URINE NEG (NEG); BLOOD, URINE NEG (NEG); GLUCOSE,URINE NEG (NEG); KETONE, URINE NEG (NEG); NITRITE,URINE NEG (NEG); PH, URINE 6.5 (5.0-8.5); SQUAMOUS EPITHELIAL CELL URINE <1 /hpf (0-5); URINE COLOR YELLOW (YELLW/STRAW); URINE LEUKOCYTE ESTERASE NEG (NEG)
[2017-09-04] MEDS: PRAVASTATIN SOD 40 MG TAB PO SCH (20:44)
[2017-09-04] MEDS: SODIUM CHLORIDE 0.9% FLUSH 10 ML FLUSH IV FLUSH SCH (20:45)
--- NOTE | 2017-09-04 20:45 | MB ---
cc: CRISTINE COLUNGA M.D. DATE OF CONSULTATION: 09/04/2017 REASON FOR CONSULTATION: COPD exacerbation, pneumonia. HISTORY OF PRESENT ILLNESS: Mr. Morrow is a 72-year-old male admitted with increasing shortness of breath, cough with expectoration of yellowish mucoid sputum, which has been becoming progressively worse. He noted temperature elevation as well up to 102 degrees, Fahrenheit. The patient as home oxygen therapy. He is followed by Dr. Roly Shrestha from a pulmonary standpoint. PAST MEDICAL HISTORY: His past medical history is that of: 1. COPD on and PRN albuterol. 2. Hyperlipidemia. 3. Hypertension. 4. Chronic respiratory failure on oxygen therapy. 5. TIA. 6. He did have a previous right upper lobectomy with history of tuberculosis. 7. Surgery on both wrists. 8. He has had an appendectomy in the past as well. MEDICATIONS: 1. 2. Simvastatin. 3. Vitamin tablet. ALLERGIES: NONE KNOWN TO MEDICATIONS. FAMILY HISTORY: Positive for heart disease, otherwise unremarkable. SOCIAL HISTORY: A 150 pack/year smoking history, stopped two years ago. Does not drink any alcohol. Does not use drugs. PHYSICAL EXAMINATION: GENERAL: On exam, the patient is alert. VITAL SIGNS: Temperature is 100.5. Respirations 20, blood pressure 140/80, oxygen saturation 93% on three liters oxygen via nasal cannula. HEAD, EYES, EARS, NOSE, THROAT: Unremarkable. Eyes without icterus. NECK: Without adenopathy, thyroid enlargement. CHEST: Scattered rhonchi at bases. CARDIAC: PMI not appreciated. S1-S2 audible. No murmur, no rub. ABDOMEN: Lax. Bowel sounds audible. LABORATORY DATA: White count 12,000, hemoglobin 15, hematocrit 46, platelets 140,000. Sodium 137, potassium 4.4, BUN 40, creatinine 1.4. IMAGING STUDIES: Chest x-ray with lung infiltrates, question multilobular pneumonia. IMPRESSION: 1. Right lung pneumonia. 2. COPD. 3. Renal insufficiency apparently acute. 4. Hypertension. 5. Hyperlipidemia. PLAN: 1. The patient will be maintained on oxygen therapy. 2. Bronchodilator therapy. 3. Antibiotic therapy has been initiated, and appropriately so. 4. We will follow the patient's course with you as needed. 5. Follow up chest x-ray periodically and depending on the patient's progress would proceed further. I do thank you for asking me to partake in Mr. Morrow' care. Cristine Colunga MD WWW/DICK /7:27 PM /8:29 PM
[2017-09-04] MEDS ORDERED: methylPREDNISolone SOD SUCC 40 MG/1 ML VIAL IV PUSH SCH (23:00)
[2017-09-05] VITALS (7 sets, daily range): BP systolic 120–133; BP diastolic 58–73; PULSE 77–104; RESP 18–21; TEMP 97.4–98; O2SAT 94–98
[2017-09-05] MEDS: SODIUM CHLOR 0.9% 1000 ML INJ 1,000 ML IV SCH (03:42)
[2017-09-05] MEDS: HEPARIN SODIUM - SQ 10,000 UNITS/ML VIAL SQ SCH ×3 (06:40→23:07)
[2017-09-05] MEDS: RESP: ALBUTEROL 2.5 MG/IPRATROPIUM 0.5 MG NEB (PRN) INH ×2 (07:04→11:26)
--- NOTE | 2017-09-05 08:03 | HHI.PR ---
Subjective Remarks Patient seen and examined this morning. Vitals are stable, saturating 98% on 2 L nasal cannula. Feels okay just laying in bed. But reports significant SOB with any movement. Reports he has poor quality of life at home, easily winded when he goes to the bathroom, cannot stand to use the rest room. He reports he feels 70-80% like his baseline. Was in pulmonary rehab just started, missed this week. He states he is not suicidal, but feels like he is a burdeon on his and doesn't want to live this way. Objective Vital Signs Date Time Temp Pulse Resp B/P (MAP) Pulse Ox O2 Delivery O2 Flow Rate FiO2 09/05/17 07:05 98 Nasal Cannula 2.00 09/05/17 05:27 97.4 85 20 120/63 (82) 98 09/05/17 00:00 98.0 89 21 125/58 (80) 97 09/04/17 20:22 98.6 84 21 110/55 (73) 96 09/04/17 18:05 95 Nasal Cannula 3.00 09/04/17 16:51 98.3 80 20 118/60 (79) 97 09/04/17 15:45 Nasal Cannula 3.00 09/04/17 15:36 09/04/17 12:19 100.5 104 24 114/57 (76) 95 Nasal Cannula 3.00 09/04/17 11:43 117 30 142/82 (102) 95 Nasal Cannula 3.00 09/04/17 11:43 95 3.00 09/04/17 11:00 95 Nasal Cannula 3.00 09/04/17 10:26 114 33 94 Nasal Cannula 3.00 09/04/17 10:24 143/67 (92) 09/04/17 10:18 103.1 118 26 93 I/O 09/04/17 09/04/17 09/04/17 09/05/17 09/05/17 09/05/17 07:00 15:00 23:00 07:00 15:00 23:00 Intake Total 1350 ml 982 ml Output Total 200 ml 400 ml Balance 1150 ml -400 ml 982 ml Intake IV Total 1350 ml 982 ml Output Urine Total 400 ml Emesis 200 ml # Voids 1 Result Diagram: 09/04/17 1030 09/04/17 1030 Imaging Last Impressions Chest X-Ray 09/04/17 1028 Signed Impressions: Service Date/Time: Monday, September 04, 2017 10:43 - CONCLUSION: 1. Patchy peripheral airspace disease throughout the right lung concerning for multilobar pneumonia/atypical infection. Reid Lai MD Gall Bladder Ultrasound 09/04/17 0000 Signed Impressions: Service Date/Time: Monday, September 04, 2017 13:26 - CONCLUSION: 1. Cholelithiasis with sonographic findings concerning for early acute cholecystitis. Consider HIDA scan if there is continued clinical uncertainty. Reid Lai MD Objective Remarks GENERAL: sitting in bed still, nad SKIN: Warm and dry. HEAD: Normocephalic. EYES: No scleral icterus. No injection or drainage. NECK: Supple, trachea midline. No JVD or lymphadenopathy. CARDIOVASCULAR: Regular rate and rhythm without murmurs, gallops, or rubs. RESPIRATORY: Anterior and posterior expiratory wheezing, dry cough, no rales or rhonchi GASTROINTESTINAL: Abdomen soft, +RUQ tenderness MUSCULOSKELETAL: No cyanosis, or edema. A/P Problem List: (1) Abdominal pain ICD Code: R10.9 - Unspecified abdominal pain Status: Resolved (2) Hyperlipidemia ICD Code: E78.5 - Hyperlipidemia, unspecified Status: Chronic (3) COPD with acute exacerbation ICD Code: J44.1 - Chronic obstructive pulmonary disease with (acute) exacerbation Status: Acute (4) Pneumonia ICD Code: J18.9 - Pneumonia, unspecified organism Status: Acute (5) Acute cholecystitis ICD Code: K81.0 - Acute cholecystitis Assessment and Plan 72-year-old male patient with a medical history for COPD, hypertension, hyperlipidemia, and TIA with COPD exacerbation and acute cholecystitis Community-acquired pneumonia, COPD exacerbation, oxygen dependent - Met sepsis criteria on admission - CT chest x-ray about which shows patchy peripheral airspace disease throughout the right lung concerning for multilobar pneumonia - Continue Rocephin and azithromycin 09/04 - DuoNeb nebs - Urine pneumococcal and Legionella antigens pending - The cultures pending, sputum cultures pending - IV Solu-Medrol 60 mg IV BID - Patient manager paid Dr. Shrestha was consulted, was seen and evaluated by Dr. Colunga - Discussed having palliative care come see the patient, he is open to this RUQ abd pain/Acute Cholecystitis - see US above - general surgery consulted - NPO until evaluated by general surger JA - Baseline creatinine 1.1-1.2 - on admission 1.4 - IVF, avoid nephrotoxic agents Hyperlipidemia - Continue home meds GERD - Continue home meds CAD - continue plavix - continue statin Fluids: 100 cc/hr NS IVF Electrolytes: currently wnl Nutrition: currently NPO DVT prophy: heparin Discharge Planning D/C pending further workup and surgical eval Cici Arredondo MD Sep 05, 2017 08:03
[2017-09-05 08:13] LABS: AUTOMATED NEUTROPHIL # 9.5 TH/MM3 (1.8-7.7); BASOPHIL % 0.2 % (0.0-2.0); HEMATOCRIT 42.7 % (39.0-51.0); HEMOGLOBIN 14.4 GM/DL (13.0-17.0); LYMPH % 4.6 % (9.0-44.0); LYMPHOCYTE # 0.5 TH/MM3 (1.0-4.8); MEAN CORPUSCULAR HGB CONC 33.7 % (32.0-36.0); MEAN PLATELET VOLUME 9.6 FL (7.0-11.0); MONOCYTE # 0.4 TH/MM3 (0-0.9); NEUT % 91.2 % (16.0-70.0); PLATELET COUNT 137 TH/MM3 (150-450); RED BLOOD COUNT 4.64 MIL/MM3 (4.50-5.90); RED CELL DISTRIBUTION WIDTH 14.6 % (11.6-17.2); WHITE BLOOD COUNT 10.4 TH/MM3 (4.0-11.0)
[2017-09-05 08:36] LABS: ALBUMIN 2.9 GM/DL (3.4-5.0); AST (GOT) 14 U/L (15-37); BICARBONATE 26.7 MEQ/L (21.0-32.0); BLOOD UREA NITROGEN 16 MG/DL (7-18); CALCIUM 9.5 MG/DL (8.5-10.1); CHLORIDE 105 MEQ/L (98-107); CREATININE 1.21 MG/DL (0.60-1.30); GLOMERULAR FILTRATION RATE 59 ML/MIN (>89); GLUCOSE,RANDOM 150 MG/DL (74-106); SODIUM (NA) 141 MEQ/L (136-145)
[2017-09-05 08:37] LABS: ALT (GPT) 33 U/L (12-78)
[2017-09-05 08:39] LABS: ALKALINE PHOSPHATASE 56 U/L (45-117); TOTAL BILIRUBIN ADULT 0.9 MG/DL (0.2-1.0); TOTAL PROTEIN 6.4 GM/DL (6.4-8.2)
[2017-09-05] MEDS: CLOPIDOGREL 75 MG TAB PO SCH (09:00)
[2017-09-05] MEDS: cefTRIAXone INJ 1,000 MG in SODIUM CHLORIDE 0.9% INJ 100 ML IV SCH (09:17)
[2017-09-05] MEDS: PANTOPRAZOLE SOD 40 MG DELAYED RELEASE TAB PO SCH (09:17)
[2017-09-05] MEDS: methylPREDNISolone SOD SUCC 125 MG/2 ML VIAL IV PUSH SCH ×2 (09:23→21:05)
[2017-09-05] MEDS: SODIUM CHLORIDE 0.9% FLUSH 10 ML FLUSH IV FLUSH SCH ×2 (09:24→21:05)
[2017-09-05] MEDS: UMECLIDINIUM 62.5 MCG/VILANTEROL 25 MCG INHALER INH SCH (11:05)
[2017-09-05] MEDS ORDERED: RESP: ALBUTEROL 2.5 MG/IPRATROPIUM 0.5 MG NEB (SCH) NEB (12:00)
[2017-09-05] MEDS: AZITHROMYCIN INJ 500 MG in SODIUM CHLOR 0.9% 250 ML INJ 250 ML IV SCH (12:21)
[2017-09-05] MEDS ORDERED: RESP: ALBUTEROL 2.5 MG/IPRATROPIUM 0.5 MG NEB (PRN) NEB (13:45)
--- NOTE | 2017-09-05 13:45 | HHI.PR ---
Subjective Remarks Patient is lying in bed in NAD. Afebrile. On 2L home oxygen. Objective Vital Signs Vital Signs Date Time Temp Pulse Resp B/P (MAP) Pulse Ox O2 Delivery O2 Flow Rate FiO2 09/05/17 12:00 98.0 100 18 133/67 (89) 96 09/05/17 08:00 97.9 97 18 121/58 (79) 96 09/05/17 07:05 98 Nasal Cannula 2.00 09/05/17 05:27 97.4 85 20 120/63 (82) 98 09/05/17 00:00 98.0 89 21 125/58 (80) 97 09/04/17 20:22 98.6 84 21 110/55 (73) 96 09/04/17 18:05 95 Nasal Cannula 3.00 09/04/17 16:51 98.3 80 20 118/60 (79) 97 09/04/17 15:45 Nasal Cannula 3.00 09/04/17 15:36 I/O 09/04/17 09/04/17 09/04/17 09/05/17 09/05/17 09/05/17 07:00 15:00 23:00 07:00 15:00 23:00 Intake Total 1350 ml 982 ml Output Total 200 ml 400 ml Balance 1150 ml -400 ml 982 ml Intake IV Total 1350 ml 982 ml Output Urine Total 400 ml Emesis 200 ml # Voids 1 Result Diagram: 09/05/17 0710 09/05/17 0710 Other Results Last Impressions Chest X-Ray 09/04/17 1028 Signed Impressions: Service Date/Time: Monday, September 04, 2017 10:43 - CONCLUSION: 1. Patchy peripheral airspace disease throughout the right lung concerning for multilobar pneumonia/atypical infection. Reid Lai MD Gall Bladder Ultrasound 09/04/17 0000 Signed Impressions: Service Date/Time: Monday, September 04, 2017 13:26 - CONCLUSION: 1. Cholelithiasis with sonographic findings concerning for early acute cholecystitis. Consider HIDA scan if there is continued clinical uncertainty. Reid Lai MD Objective Remarks GENERAL: Patient is 72 yo lying in bed in mild resp distress SKIN: Warm and dry. HEAD: Normocephalic. EYES: No scleral icterus. No injection or drainage. NECK: Supple, trachea midline. No JVD or lymphadenopathy. CARDIOVASCULAR: Regular rate and rhythm without murmurs, gallops, or rubs. RESPIRATORY: Breath sounds equal bilaterally. Overall diminished GASTROINTESTINAL: Abdomen soft, non-tender, nondistended. MUSCULOSKELETAL: No cyanosis, or edema. Neuro: Awake and alert A/P Assessment and Plan 1)Resp Insuff 2)Multilobar pneumonia. 3)COPD. 4) Hx RUL lobectomy 5)JA..improving 6)Hypertension. 7)Hyperlipidemia. Plan Continue with oxygen keep sat >92% Bronchodilators, solumederol 60mg BID NIPPV PRN for resp distress Check CXR in am Continue with abx ( Rocephin, Zithromax) monitor or signs of infections ( Fever , WBC) Strep pneumonia and Legionella urinary Ag negative. Check sputum cx d/c IVF GI/DVT prophylaxis- on Protonix and Heparin SQ respectively Evan Valdivia MD Sep 05, 2017 13:45
--- NOTE | 2017-09-05 15:31 | PD.CAR.PN ---
CVT Progress Note Subjective/Hospital Course: 72-year-old male with right-sided pneumonia severe COPD and chronic respiratory insufficiency At this point patient is being treated for the same Started complaining about right upper quadrant pain yesterday and is found to have cholelithiasis as an incidental finding At this point I would definitely avoid doing any surgery in this patient and treat pneumonia and respiratory insufficiency to start with Patient can be started on liquids advance to low-fat diet and we'll see how he does Cholelithiasis is only incidental finding and well patient may have at the biliary coli last night this is resolved by now Once all the medical issues of taking care of we can reevaluate the patient and see if we can go ahead with laparoscopic cholecystectomy at that time Full consult dictated Will follow Thanks J Objective: Vital Signs Date Time Temp Pulse Resp B/P (MAP) Pulse Ox O2 Delivery O2 Flow Rate FiO2 09/05/17 12:00 98.0 100 18 133/67 (89) 96 09/05/17 08:00 97.9 97 18 121/58 (79) 96 09/05/17 07:05 98 Nasal Cannula 2.00 09/05/17 05:27 97.4 85 20 120/63 (82) 98 09/05/17 00:00 98.0 89 21 125/58 (80) 97 09/04/17 20:22 98.6 84 21 110/55 (73) 96 09/04/17 18:05 95 Nasal Cannula 3.00 09/04/17 16:51 98.3 80 20 118/60 (79) 97 09/04/17 15:45 Nasal Cannula 3.00 09/04/17 15:36 Labs: Laboratory Tests Test 09/05/17 07:10 White Blood Count 10.4 TH/MM3 (4.0-11.0) Red Blood Count 4.64 MIL/MM3 (4.50-5.90) Hemoglobin 14.4 GM/DL (13.0-17.0) Hematocrit 42.7 % (39.0-51.0) Mean Corpuscular Volume 92.0 FL (80.0-100.0) Mean Corpuscular Hemoglobin 31.0 PG (27.0-34.0) Mean Corpuscular Hemoglobin Concent 33.7 % (32.0-36.0) Red Cell Distribution Width 14.6 % (11.6-17.2) Platelet Count 137 TH/MM3 (150-450) Mean Platelet Volume 9.6 FL (7.0-11.0) Neutrophils (%) (Auto) 91.2 % (16.0-70.0) Lymphocytes (%) (Auto) 4.6 % (9.0-44.0) Monocytes (%) (Auto) 4.0 % (0.0-8.0) Eosinophils (%) (Auto) 0.0 % (0.0-4.0) Basophils (%) (Auto) 0.2 % (0.0-2.0) Neutrophils # (Auto) 9.5 TH/MM3 (1.8-7.7) Lymphocytes # (Auto) 0.5 TH/MM3 (1.0-4.8) Monocytes # (Auto) 0.4 TH/MM3 (0-0.9) Eosinophils # (Auto) 0.0 TH/MM3 (0-0.4) Basophils # (Auto) 0.0 TH/MM3 (0-0.2) CBC Comment DIFF FINAL Differential Comment Blood Urea Nitrogen 16 MG/DL (7-18) Creatinine 1.21 MG/DL (0.60-1.30) Random Glucose 150 MG/DL (74-106) Total Protein 6.4 GM/DL (6.4-8.2) Albumin 2.9 GM/DL (3.4-5.0) Calcium Level 9.5 MG/DL (8.5-10.1) Alkaline Phosphatase 56 U/L (45-117) Aspartate Amino Transf (AST/SGOT) 14 U/L (15-37) Alanine Aminotransferase (ALT/SGPT) 33 U/L (12-78) Total Bilirubin 0.9 MG/DL (0.2-1.0) Sodium Level 141 MEQ/L (136-145) Potassium Level 3.8 MEQ/L (3.5-5.1) Chloride Level 105 MEQ/L (98-107) Carbon Dioxide Level 26.7 MEQ/L (21.0-32.0) Anion Gap 9 MEQ/L (5-15) Estimat Glomerular Filtration Rate 59 ML/MIN (>89) Result Diagram: 09/05/17 0710 09/05/17 0710 Dacia Pagan MD Sep 05, 2017 15:31
--- NOTE | 2017-09-05 15:47 | EKG ---
Date Performed: 09/04/2017 Time Performed: 10:21:49 PTAGE: 72 years EKG: SINUS TACHYCARDIA WITH FREQUENT ATRIAL PREMATURE BEATS, SOME OF WHICH ARE SUSPECTED TO BE A BBEARANTLY CONDUCTED VERSUS PVCS POOR R WAVE PROGRESSION IS OLD Since previous tracing, no significan t change noted ABNORMAL RHYTHM ECG NO PREVIOUS TRACING DOCTOR: Abimael Cantu Interpretating Date/Time 09/05/2017 15:46:58
[2017-09-05] MEDS: RESP: ALBUTEROL 2.5 MG/IPRATROPIUM 0.5 MG NEB (SCH) NEB ×2 (16:21→20:08)
--- NOTE | 2017-09-05 17:29 | MB ---
cc: DACIA HEALY MD DATE OF CONSULTATION 09/05/17 REASON FOR CONSULTATION Abdominal pain and right upper quadrant pain, cholelithiasis, COPD, respiratory failure, right lobe pneumonia. Critical care time 38 minutes. HISTORY OF PRESENT ILLNESS This 72 year old male is admitted to the hospital through the emergency room with severe cough, shortness of breath, expectoration mucus and yellowish thick sputum and the patient has noted that he is progressively getting worse. He is also febrile to 103. The patient started complaining about abdominal pain yesterday afternoon and the ultrasound was performed which reveals cholelithiasis. Question arises about any correlation to the same. PAST MEDICAL HISTORY 1. Severe COPD on home oxygen 2. Chronic respiratory failure, 3. Hypertension, 4. Hyperlipidemia, 5. Previous TIAs PAST SURGICAL HISTORY 1. Appendectomy 2. Right upper lobectomy for some top of granuloma MEDICATIONS Can be found on the record. ALLERGIES None. SOCIAL HISTORY The patient smoked about two packs a day still about two years ago when he had lung surgery, does not drink. PHYSICAL EXAMINATION GENERAL: A pleasant 72-year-old gentleman in moderate distress due to shortness of breath. HEENT: Normocephalic. No trauma to the head. Pupils equally reactive. Extraocular muscles are intact. NECK: Bilateral carotid pulses and faint bilateral carotid bruits. The patient in addition has a bruit propagating from the right chest. HEART: Regular rhythm, murmur over the right second intercostal space propagating to neck. The patient may have some degree of aortic stenosis on top of all this. The patient is barrel-chested and atrophy of the chest musculature and loss of muscle wall. ABDOMEN: Soft. Active bowel sounds. On palpation, slightly tender in the right upper quadrant but no rebound, no guarding and no signs of acute abdomen. EXTREMITIES: The patient has bilateral palpable femoral pulses and palpable dorsalis pedis, posterior tibial only by Doppler. IMPRESSION/RECOMMENDATIONS I reviewed laboratory and diagnostic procedures. As above-noted, this gentleman came with a pneumonia, now is complaining about some abdominal pain. The patient clearly has respiratory symptoms which take priority in this case and should be handled first. He has been here numerous times for the same problems and this is definitely something that should be attended and is being done as we speak. As far as gallbladder is concerned, once all the problems are resolved, I have no problem doing elective cholecystectomy because the patient indeed probably is recovering from a biliary colic. However, this does not present any emergency and can be done on an outpatient basis or while the patient is still in the hospital once he recovers. Preferably the patient should be done on outpatient basis. I thank you much for referral. Dacia BROWNING /3:22 PM /5:07 PM
[2017-09-05] MEDS: PRAVASTATIN SOD 40 MG TAB PO SCH (21:04)
[2017-09-06] VITALS (9 sets, daily range): BP systolic 124–162; BP diastolic 69–80; PULSE 88–107; RESP 18–20; TEMP 97.7–98.2; O2SAT 91–100
[2017-09-06] MEDS: RESP: ALBUTEROL 2.5 MG/IPRATROPIUM 0.5 MG NEB (SCH) NEB ×7 (00:09→23:44)
[2017-09-06] MEDS: HEPARIN SODIUM - SQ 10,000 UNITS/ML VIAL SQ SCH ×3 (06:41→22:01)
--- NOTE | 2017-09-06 07:48 | HHI.PR ---
Subjective Remarks Patient seen and examined this morning. Vitals are stable, saturating 91% on 2 L nasal cannula. Feels like he's breathing at his baseline. Ate a bunch of food yesterday because he was really hungry (2 jello, 2 puddings, soda) and experienced some abdominal pain last night and burning sensation in his mouth, felt like he wanted to vomit. States he got medicine and this resolved. Today no abdominal pain. Objective Vital Signs Date Time Temp Pulse Resp B/P (MAP) Pulse Ox O2 Delivery O2 Flow Rate FiO2 09/06/17 04:00 97.7 106 18 124/73 (90) 91 09/06/17 00:11 96 Nasal Cannula 2.00 09/06/17 00:00 98.2 92 18 127/72 (90) 94 09/05/17 20:52 Nasal Cannula 2.00 09/05/17 20:00 98.0 104 18 129/73 (91) 94 09/05/17 16:00 98.0 77 18 121/66 (84) 95 09/05/17 12:00 98.0 100 18 133/67 (89) 96 09/05/17 08:00 97.9 97 18 121/58 (79) 96 I/O 09/05/17 09/05/17 09/05/17 09/06/17 09/06/17 09/06/17 07:00 15:00 23:00 07:00 15:00 23:00 Intake Total 982 ml 200 ml Output Total 400 ml Balance 982 ml 200 ml -400 ml Intake IV Total 982 ml 200 ml Output Urine Total 400 ml # Voids 1 # Bowel Movements 1 Result Diagram: 09/05/17 0710 09/05/17 0710 Imaging GENERAL: SKIN: Warm and dry. HEAD: Normocephalic. EYES: No scleral icterus. No injection or drainage. NECK: Supple, trachea midline. No JVD or lymphadenopathy. CARDIOVASCULAR: Regular rate and rhythm without murmurs, gallops, or rubs. RESPIRATORY: Breath sounds equal bilaterally. No accessory muscle use. GASTROINTESTINAL: Slightly distended abdomen, tenderness to palpation right upper quadrant MUSCULOSKELETAL: No cyanosis, or edema. BACK: Nontender without obvious deformity. No CVA tenderness. Objective Remarks GENERAL: sitting in bed still, nad SKIN: Warm and dry. HEAD: Normocephalic. EYES: No scleral icterus. No injection or drainage. NECK: Supple, trachea midline. No JVD or lymphadenopathy. CARDIOVASCULAR: Regular rate and rhythm without murmurs, gallops, or rubs. RESPIRATORY: Anterior and posterior expiratory wheezing (improved from yesterday ), dry cough, no rales or rhonchi GASTROINTESTINAL: Abdomen soft, +RUQ tenderness with deep palpation MUSCULOSKELETAL: No cyanosis, or edema. A/P Problem List: (1) Abdominal pain ICD Code: R10.9 - Unspecified abdominal pain Status: Resolved (2) Hyperlipidemia ICD Code: E78.5 - Hyperlipidemia, unspecified Status: Chronic (3) COPD with acute exacerbation ICD Code: J44.1 - Chronic obstructive pulmonary disease with (acute) exacerbation Status: Acute (4) Pneumonia ICD Code: J18.9 - Pneumonia, unspecified organism Status: Acute (5) Acute cholecystitis ICD Code: K81.0 - Acute cholecystitis Assessment and Plan 72-year-old male patient with a medical history for COPD, hypertension, hyperlipidemia, and TIA with COPD exacerbation and acute cholecystitis Community-acquired pneumonia, COPD exacerbation, oxygen dependent. Patient basically at his baseline. So will deescalate IV steroids, anticipate transition to PO abx and steroids. - Met sepsis criteria on admission - CT chest x-ray about which shows patchy peripheral airspace disease throughout the right lung concerning for multilobar pneumonia - Continue Rocephin and azithromycin 09/04 - DuoNeb nebs - Urine pneumococcal and Legionella antigens negative -Blood cultures negative to date, sputum cultures pending - IV Solu-Medrol 60 mg IV Daily - Patient project management it specialist Dr. Shrestha was consulted, was seen and evaluated by Dr. Colunga - Discussed having palliative care come see the patient, he is open to this RUQ abd pain/Acute Cholecystitis - see US above - general surgery consulted: Once pulmonary conditions have stabilized/resolved Dr. Hinojosa recommends a elective cholecystectomy. This nonemergency and can be done as an outpatient basis or as an inpatient when she recovers. - Liquid diet, will advance to low fat diet JA - Baseline creatinine 1.1-1.2 - on admission 1.4, improved - IVF, avoid nephrotoxic agents Hyperlipidemia - Continue home meds GERD - Continue home meds CAD - continue plavix - continue statin Fluids: HLIV Electrolytes: currently wnl Nutrition: liquid diet DVT prophy: heparin Discharge Planning Patient is essentially at his baseline. Deescalate IV steroids Plan to transition to PO abx and steroids tomorrow in anticipation for d/c Will complete abx and steroids as an outpatient and then follow up with Dr. Carrington in the office for outpatient lap Cici Harp MD Sep 06, 2017 07:48
[2017-09-06] MEDS: cefTRIAXone INJ 1,000 MG in SODIUM CHLORIDE 0.9% INJ 100 ML IV SCH (08:00)
[2017-09-06] MEDS: methylPREDNISolone SOD SUCC 125 MG/2 ML VIAL IV PUSH SCH (08:01)
[2017-09-06] MEDS: PANTOPRAZOLE SOD 40 MG DELAYED RELEASE TAB PO SCH (08:01)
[2017-09-06] MEDS: SODIUM CHLORIDE 0.9% FLUSH 10 ML FLUSH IV FLUSH SCH ×2 (08:02→22:01)
[2017-09-06] MEDS: CLOPIDOGREL 75 MG TAB PO SCH (08:02)
[2017-09-06] MEDS: UMECLIDINIUM 62.5 MCG/VILANTEROL 25 MCG INHALER INH SCH (08:04)
[2017-09-06 09:15] LABS: AUTOMATED NEUTROPHIL # 10.1 TH/MM3 (1.8-7.7); BASOPHIL % 0.3 % (0.0-2.0); HEMATOCRIT 39.9 % (39.0-51.0); HEMOGLOBIN 13.6 GM/DL (13.0-17.0); LYMPH % 3.6 % (9.0-44.0); LYMPHOCYTE # 0.4 TH/MM3 (1.0-4.8); MEAN CELL VOLUME 91.6 FL (80.0-100.0); MEAN CORPUSCULAR HEMOGLOBIN 31.2 PG (27.0-34.0); MEAN PLATELET VOLUME 10.3 FL (7.0-11.0); MONO % 5.3 % (0.0-8.0); MONOCYTE # 0.6 TH/MM3 (0-0.9); NEUT % 90.8 % (16.0-70.0); PLATELET COUNT 160 TH/MM3 (150-450); RED BLOOD COUNT 4.36 MIL/MM3 (4.50-5.90); RED CELL DISTRIBUTION WIDTH 14.2 % (11.6-17.2); WHITE BLOOD COUNT 11.1 TH/MM3 (4.0-11.0)
[2017-09-06 09:20] LABS: ALBUMIN 2.8 GM/DL (3.4-5.0); AST (GOT) 17 U/L (15-37); BICARBONATE 25.8 MEQ/L (21.0-32.0); BLOOD UREA NITROGEN 18 MG/DL (7-18); CALCIUM 9.4 MG/DL (8.5-10.1); CHLORIDE 108 MEQ/L (98-107); CREATININE 1.09 MG/DL (0.60-1.30); GLOMERULAR FILTRATION RATE 66 ML/MIN (>89); GLUCOSE,RANDOM 138 MG/DL (74-106); SODIUM (NA) 141 MEQ/L (136-145)
[2017-09-06 09:21] LABS: ALT (GPT) 31 U/L (12-78)
[2017-09-06 09:23] LABS: ALKALINE PHOSPHATASE 52 U/L (45-117); TOTAL BILIRUBIN ADULT 0.5 MG/DL (0.2-1.0); TOTAL PROTEIN 6.1 GM/DL (6.4-8.2)
--- NOTE | 2017-09-06 10:04 | HHI.PR ---
Subjective Remarks Patient is sitting in chair in mild resp distress Objective Vital Signs Vital Signs Date Time Temp Pulse Resp B/P (MAP) Pulse Ox O2 Delivery O2 Flow Rate FiO2 09/06/17 04:00 97.7 106 18 124/73 (90) 91 09/06/17 00:11 96 Nasal Cannula 2.00 09/06/17 00:00 98.2 92 18 127/72 (90) 94 09/05/17 20:52 Nasal Cannula 2.00 09/05/17 20:00 98.0 104 18 129/73 (91) 94 09/05/17 16:00 98.0 77 18 121/66 (84) 95 09/05/17 12:00 98.0 100 18 133/67 (89) 96 I/O 09/05/17 09/05/17 09/05/17 09/06/17 09/06/17 09/06/17 07:00 15:00 23:00 07:00 15:00 23:00 Intake Total 982 ml 200 ml Output Total 400 ml Balance 982 ml 200 ml -400 ml Intake IV Total 982 ml 200 ml Output Urine Total 400 ml # Voids 1 1 # Bowel Movements 1 Result Diagram: 09/06/17 0700 09/06/17 0700 Other Results Last Impressions Chest X-Ray 09/04/17 1028 Signed Impressions: Service Date/Time: Monday, September 04, 2017 10:43 - CONCLUSION: 1. Patchy peripheral airspace disease throughout the right lung concerning for multilobar pneumonia/atypical infection. Reid Lai MD Gall Bladder Ultrasound 09/04/17 0000 Signed Impressions: Service Date/Time: Monday, September 04, 2017 13:26 - CONCLUSION: 1. Cholelithiasis with sonographic findings concerning for early acute cholecystitis. Consider HIDA scan if there is continued clinical uncertainty. Reid Lai MD Objective Remarks GENERAL: Patient is 72 yo lying in bed in mild resp distress SKIN: Warm and dry. HEAD: Normocephalic. EYES: No scleral icterus. No injection or drainage. NECK: Supple, trachea midline. No JVD or lymphadenopathy. CARDIOVASCULAR: Regular rate and rhythm without murmurs, gallops, or rubs. RESPIRATORY: Breath sounds equal bilaterally. Overall diminished GASTROINTESTINAL: Abdomen soft, non-tender, nondistended. MUSCULOSKELETAL: No cyanosis, or edema. Neuro: Awake and alert A/P Assessment and Plan 1)Resp Insuff 2)Multilobar pneumonia. 3)COPD. 4) Hx RUL lobectomy 5)JA..improving 6)Hypertension. 7)Hyperlipidemia. Plan Continue with oxygen keep sat >92% Bronchodilators, solumederol 60mg IV daily NIPPV PRN for resp distress Check CXR and diurese with Lasix 40mg x1 Continue with abx ( Rocephin, Zithromax) monitor or signs of infections ( Fever , WBC) Strep pneumonia and Legionella urinary Ag negative.Follow up on sputum cx GI/DVT prophylaxis- on Protonix and Heparin SQ respectively Evan Valdivia MD Sep 06, 2017 10:04
--- NOTE | 2017-09-06 10:29 | RADRPT ---
EXAM DATE/TIME: 09/06/2017 10:07 [facility] COMPARISON: CHEST SINGLE AP, November 16, 2016, 22:31. CHEST SINGLE AP, September 04, 2017, 10:43. INDICATIONS : Short of breath. MEDICAL HISTORY : Carcinoma, prostatic. Hypercholesterolemia. Hypertension. Chronic obstructive pulmonary disease . TIA. SURGICAL HISTORY : Thyroidectomy. Appendectomy. Lobectomy, right lower lung. ENCOUNTER: Subsequent ACUITY: 2 days PAIN SCORE: 0/10 LOCATION: Bilateral chest FINDINGS: No significant interval change from the prior study. There is shift of mediastinum to the right and v olume loss/peripheral opacity in the right lung. Left lung clear. No evidence of pleural effusion or pneumothorax. CONCLUSION: No significant change. Post surgical findings in the right lung again seen. Persistent volume loss an d lateral right lung opacity that may represent scarring or infection. Roddy Oro MD on September 06, 2017 at 10:25 Board Certified Radiologist. This report was verified electronically.
[2017-09-06] MEDS ORDERED: FUROSEMIDE 40 MG/4 ML VIAL IV PUSH ONE (10:30)
--- NOTE | 2017-09-06 11:35 | RADRPT ---
EXAM DATE/TIME: 09/06/2017 10:51 [facility] COMPARISON: No previous studies available for comparison. INDICATIONS : Left bruit. MEDICAL HISTORY : Chronic obstructive pulmonary disease. Hypercholesterolemia. Hyperthyroidism. Hypertension. Cerebrova scular accident. Anticoagulant therapy. Heart murmur. Prostate cancer. Blood transfusion. SURGICAL HISTORY : Lobectomy. Appendectomy. Cataract removal. Partial thyroidectomy. Bilateral wrist surgery. ENCOUNTER: Initial ACUITY: 1 day PAIN SCORE: 0/10 LOCATION: Bilateral neck PEAK SYSTOLIC VELOCITIES (cm/sec): ICA/CCA RATIO: Right: 0.9 Left: 1.1 ICA: Right: 82 Left: 117 CCA: Right: 88 Left: 108 ECA: Right: 195 Left: 113 VERTEBRAL: Right: 59 antegrade Left: 89 antegrade Elevated flow velocities and ICA/CCA ratios have been found to correlate with increased degrees of vessel stenosis, calculated as percentage of diameter relative to a normal segment of distal ICA/CCA FINDINGS: RIGHT CAROTID: Mild calcified plaque at the carotid bulb. No significant stenosis is visualized. The waveforms are within normal limits. LEFT CAROTID: Moderate calcified plaque at the carotid bulb. No significant stenosis is visualized. The waveforms are within normal limits. VERTEBRAL ARTERIES: Antegrade flow is seen in both vertebral arteries. MISCELLANEOUS: None. CONCLUSION: Calcified plaque at the carotid bulbs. No evidence of hemodynamically significant carotid stenosis. Roddy Oro MD on September 06, 2017 at 11:32 Board Certified Radiologist. This report was verified electronically.
[2017-09-06] MEDS: AZITHROMYCIN INJ 500 MG in SODIUM CHLOR 0.9% 250 ML INJ 250 ML IV SCH (12:45)
--- NOTE | 2017-09-06 14:16 | PD.CAR.PN ---
CVT Progress Note Subjective/Hospital Course: 72-year-old male with right-sided pneumonia severe COPD and chronic respiratory insufficiency At this point patient is being treated for the same Started complaining about right upper quadrant pain yesterday and is found to have cholelithiasis as an incidental finding At this point I would definitely avoid doing any surgery in this patient and treat pneumonia and respiratory insufficiency to start with Patient can be started on liquids advance to low-fat diet and we'll see how he does Cholelithiasis is only incidental finding and well patient may have at the biliary colic last night this is resolved by now Once all the medical issues of taking care of we can reevaluate the patient and see if we can go ahead with laparoscopic cholecystectomy at that time Full consult dictated Will follow Thanks J 09/06/17 Patient improved today Breathing is much better and patient has less SOB and improved aeration of both lungs with lesser effort Abdomen is soft active bowel sounds no rebound no guarding no masses Biliary colic is resolving I believe patient will be best served by having this pneumonia resolved first and then he can be brought in electively for laparoscopic cholecystectomy. The only caveat to that would be patient developed another biliary colic or the cholecystitis worsened which is unlikely. Therefore to summarize I would prefer the patient has pneumonia treated goes home and that I can follow-up with him and we can take the gallbladder out electively in a month or so Objective: Vital Signs Date Time Temp Pulse Resp B/P (MAP) Pulse Ox O2 Delivery O2 Flow Rate FiO2 09/06/17 12:50 98.1 97 19 142/73 (96) 95 09/06/17 10:16 98 Nasal Cannula 2.00 09/06/17 08:00 97.8 88 19 143/69 (93) 96 09/06/17 08:00 Nasal Cannula 2.00 09/06/17 04:00 97.7 106 18 124/73 (90) 91 09/06/17 00:11 96 Nasal Cannula 2.00 09/06/17 00:00 98.2 92 18 127/72 (90) 94 09/05/17 20:52 Nasal Cannula 2.00 09/05/17 20:00 98.0 104 18 129/73 (91) 94 09/05/17 16:00 98.0 77 18 121/66 (84) 95 Labs: Laboratory Tests Test 09/06/17 07:00 White Blood Count 11.1 TH/MM3 (4.0-11.0) Red Blood Count 4.36 MIL/MM3 (4.50-5.90) Hemoglobin 13.6 GM/DL (13.0-17.0) Hematocrit 39.9 % (39.0-51.0) Mean Corpuscular Volume 91.6 FL (80.0-100.0) Mean Corpuscular Hemoglobin 31.2 PG (27.0-34.0) Mean Corpuscular Hemoglobin Concent 34.0 % (32.0-36.0) Red Cell Distribution Width 14.2 % (11.6-17.2) Platelet Count 160 TH/MM3 (150-450) Mean Platelet Volume 10.3 FL (7.0-11.0) Neutrophils (%) (Auto) 90.8 % (16.0-70.0) Lymphocytes (%) (Auto) 3.6 % (9.0-44.0) Monocytes (%) (Auto) 5.3 % (0.0-8.0) Eosinophils (%) (Auto) 0.0 % (0.0-4.0) Basophils (%) (Auto) 0.3 % (0.0-2.0) Neutrophils # (Auto) 10.1 TH/MM3 (1.8-7.7) Lymphocytes # (Auto) 0.4 TH/MM3 (1.0-4.8) Monocytes # (Auto) 0.6 TH/MM3 (0-0.9) Eosinophils # (Auto) 0.0 TH/MM3 (0-0.4) Basophils # (Auto) 0.0 TH/MM3 (0-0.2) CBC Comment DIFF FINAL Differential Comment Blood Urea Nitrogen 18 MG/DL (7-18) Creatinine 1.09 MG/DL (0.60-1.30) Random Glucose 138 MG/DL (74-106) Total Protein 6.1 GM/DL (6.4-8.2) Albumin 2.8 GM/DL (3.4-5.0) Calcium Level 9.4 MG/DL (8.5-10.1) Alkaline Phosphatase 52 U/L (45-117) Aspartate Amino Transf (AST/SGOT) 17 U/L (15-37) Alanine Aminotransferase (ALT/SGPT) 31 U/L (12-78) Total Bilirubin 0.5 MG/DL (0.2-1.0) Sodium Level 141 MEQ/L (136-145) Potassium Level 4.3 MEQ/L (3.5-5.1) Chloride Level 108 MEQ/L (98-107) Carbon Dioxide Level 25.8 MEQ/L (21.0-32.0) Anion Gap 7 MEQ/L (5-15) Estimat Glomerular Filtration Rate 66 ML/MIN (>89) Result Diagram: 09/06/17 0700 09/06/17 0700 Dacia Pagan MD Sep 06, 2017 14:16
[2017-09-06] MEDS: PRAVASTATIN SOD 40 MG TAB PO SCH (22:01)
[2017-09-07] VITALS: BP 138/87; PULSE 90; RESP 20; TEMP 97; O2SAT 93
[2017-09-07] MEDS: RESP: ALBUTEROL 2.5 MG/IPRATROPIUM 0.5 MG NEB (SCH) NEB ×2 (03:43→11:54)
[2017-09-07 04:00] VITALS: BP 175/78; PULSE 94; RESP 20; TEMP 98.7; O2SAT 96
[2017-09-07] MEDS: HEPARIN SODIUM - SQ 10,000 UNITS/ML VIAL SQ SCH (06:44)
--- NOTE | 2017-09-07 07:43 | HHI.PR ---
Subjective Remarks Patient seen and examined this morning. Vitals are stable, saturating 96% on 2 L nasal cannula. States he is breathing better than his baseline. Was able to take off oxygen, walk to bathroom, bathe himself, brush his teeth. Sat down and put his oxygen back on did not experience significant SOB like he normally would after that activity. Objective Vital Signs Date Time Temp Pulse Resp B/P (MAP) Pulse Ox O2 Delivery O2 Flow Rate FiO2 09/07/17 04:00 98.7 94 20 175/78 (110) 96 09/07/17 00:00 97.0 90 20 138/87 (104) 93 09/06/17 23:14 Nasal Cannula 2.00 09/06/17 20:00 98.2 107 20 162/80 (107) 91 09/06/17 19:36 100 Nasal Cannula 2.00 09/06/17 16:00 97.8 89 19 141/71 (94) 95 09/06/17 12:50 98.1 97 19 142/73 (96) 95 09/06/17 10:16 98 Nasal Cannula 2.00 09/06/17 08:00 97.8 88 19 143/69 (93) 96 09/06/17 08:00 Nasal Cannula 2.00 I/O 09/06/17 09/06/17 09/06/17 09/07/17 09/07/17 09/07/17 07:00 15:00 23:00 07:00 15:00 23:00 Output Total 400 ml Balance -400 ml Output Urine Total 400 ml # Voids 1 3 Result Diagram: 09/06/17 0700 09/06/17 0700 Imaging Last Impressions Chest X-Ray 09/06/17 0000 Signed Impressions: Service Date/Time: Wednesday, September 06, 2017 10:07 - CONCLUSION: No significant change. Post surgical findings in the right lung again seen. Persistent volume loss and lateral right lung opacity that may represent scarring or infection. Roddy Oro MD Carotid Artery Ultrasound 09/06/17 0000 Signed Impressions: Service Date/Time: Wednesday, September 06, 2017 10:51 - CONCLUSION: Calcified plaque at the carotid bulbs. No evidence of hemodynamically significant carotid stenosis. Roddy Oro MD Gall Bladder Ultrasound 09/04/17 0000 Signed Impressions: Service Date/Time: Monday, September 04, 2017 13:26 - CONCLUSION: 1. Cholelithiasis with sonographic findings concerning for early acute cholecystitis. Consider HIDA scan if there is continued clinical uncertainty. Reid Lai MD Objective Remarks GENERAL: sitting up in chair, nad SKIN: Warm and dry. HEAD: Normocephalic. EYES: No scleral icterus. No injection or drainage. NECK: Supple, trachea midline. No JVD or lymphadenopathy. CARDIOVASCULAR: Regular rate and rhythm without murmurs, gallops, or rubs. RESPIRATORY: Anterior and posterior expiratory wheezing (improved from yesterday ) at base, dry cough, no rales or rhonchi GASTROINTESTINAL: Abdomen soft, +RUQ tenderness with deep palpation MUSCULOSKELETAL: No cyanosis, or edema. A/P Problem List: (1) Abdominal pain ICD Code: R10.9 - Unspecified abdominal pain Status: Resolved (2) Hyperlipidemia ICD Code: E78.5 - Hyperlipidemia, unspecified Status: Chronic (3) COPD with acute exacerbation ICD Code: J44.1 - Chronic obstructive pulmonary disease with (acute) exacerbation Status: Acute (4) Pneumonia ICD Code: J18.9 - Pneumonia, unspecified organism Status: Acute (5) Acute cholecystitis ICD Code: K81.0 - Acute cholecystitis Assessment and Plan 72-year-old male patient with a medical history for COPD, hypertension, hyperlipidemia, and TIA with COPD exacerbation and acute cholecystitis Community-acquired pneumonia, COPD exacerbation, oxygen dependent. Patient basically at his baseline. So will deescalate IV steroids, anticipate transition to PO abx and steroids. - Met sepsis criteria on admission - Repeat CXR 09/06 with no significant change - Rocephin and azithromycin 09/04- 09/07, transition to PO abx Levaquin - DuoNeb nebs - Urine pneumococcal and Legionella antigens negative - Blood cultures negative to date, sputum cultures normal respiratory mayank - IV Solu-Medrol 60 mg IV Daily--> d/c on taper - Patient orthotist or prosthetist Dr. Shrestha was consulted, was seen and evaluated by Dr. Colunga - Discussed having palliative care come see the patient, he is open to this RUQ abd pain/Acute Cholecystitis - see US above - general surgery consulted: Once pulmonary conditions have stabilized/resolved Dr. Hinojosa recommends a elective cholecystectomy. This nonemergency and can be done as an outpatient basis or as an inpatient when she recovers. - Liquid diet, will advance to low fat diet JA - Baseline creatinine 1.1-1.2 - on admission 1.4, improved - IVF, avoid nephrotoxic agents Hyperlipidemia - Continue home meds GERD - Continue home meds CAD - continue plavix - continue statin Fluids: HLIV Electrolytes: currently wnl Nutrition: liquid diet DVT prophy: heparin Discharge Planning Patient is essentially at his baseline. Home walk test, PT eval Deescalate IV steroids Transition to PO abx Will complete abx and steroids as an outpatient and then follow up with Dr. Carrington in the office for outpatient lap Cici Harp MD Sep 07, 2017 07:43
[2017-09-07] MEDS ORDERED: PROT40TA PO (07:46)
[2017-09-07] MEDS ORDERED: LEVO500T8 PO (07:46)
[2017-09-07] MEDS ORDERED: PRED20 PO (07:46)
--- NOTE | 2017-09-07 07:49 | HHI.FF ---
Face to Face Verification Diagnosis: (1) COPD with acute exacerbation (2) Acute cholecystitis Home Health Nursing Order: Medical education Oxygen administration education Nursing assessment with vital signs I have seen patient Nate Morrow, III on 09/07/17. My clinical findings support the need for the requested home health care services because: Ltd mobility - disease progression Patient has SOB I certify that my clinical findings support that this patient is homebound because: Hx COPD- exertion dyspnea/weakness Cici Arredondo MD Sep 07, 2017 07:49
--- NOTE | 2017-09-07 07:49 | HHI.DCPOC ---
Discharge Care Plan Diagnosis: (1) COPD with acute exacerbation (2) Acute cholecystitis Goals to Promote Your Health * To prevent worsening of your condition and complications * To maintain your health at the optimal level Directions to Meet Your Goals Take your medications as prescribed Follow your dietary instruction Follow activity as directed Keep your appointments as scheduled Take your immunizations and boosters as scheduled If your symptoms worsen call your PCP, if no PCP go to Urgent Care Center or Emergency Room Smoking is Dangerous to Your Health. Avoid second hand smoke Call the 24-hour hour crisis hotline for domestic abuse at Cici Arredondo MD Sep 07, 2017 07:49
[2017-09-07 08:11] VITALS: BP 147/78; PULSE 92; RESP 18; TEMP 97.6; O2SAT 94
[2017-09-07 08:16] LABS: AUTOMATED NEUTROPHIL # 6.1 TH/MM3 (1.8-7.7); BASOPHIL % 0.5 % (0.0-2.0); EOSINOPHIL % 0.1 % (0.0-4.0); HEMATOCRIT 42.5 % (39.0-51.0); HEMOGLOBIN 14.4 GM/DL (13.0-17.0); LYMPH % 11.2 % (9.0-44.0); LYMPHOCYTE # 0.9 TH/MM3 (1.0-4.8); MEAN CELL VOLUME 91.6 FL (80.0-100.0); MEAN CORPUSCULAR HEMOGLOBIN 31.1 PG (27.0-34.0); MEAN PLATELET VOLUME 9.9 FL (7.0-11.0); MONO % 8.1 % (0.0-8.0); MONOCYTE # 0.6 TH/MM3 (0-0.9); NEUT % 80.1 % (16.0-70.0); PLATELET COUNT 151 TH/MM3 (150-450); RED BLOOD COUNT 4.64 MIL/MM3 (4.50-5.90); RED CELL DISTRIBUTION WIDTH 14.3 % (11.6-17.2); WHITE BLOOD COUNT 7.6 TH/MM3 (4.0-11.0)
[2017-09-07] MEDS: CLOPIDOGREL 75 MG TAB PO SCH (08:20)
[2017-09-07] MEDS: PANTOPRAZOLE SOD 40 MG DELAYED RELEASE TAB PO SCH (08:20)
[2017-09-07] MEDS: UMECLIDINIUM 62.5 MCG/VILANTEROL 25 MCG INHALER INH SCH (08:22)
[2017-09-07] MEDS: SODIUM CHLORIDE 0.9% FLUSH 10 ML FLUSH IV FLUSH SCH (08:22)
[2017-09-07 08:32] LABS: BICARBONATE 30.6 MEQ/L (21.0-32.0); CALCIUM 9.5 MG/DL (8.5-10.1); CREATININE 1.13 MG/DL (0.60-1.30)
[2017-09-07] MEDS ORDERED: LEVOFLOXACIN 750 MG TAB PO SCH (09:00)
[2017-09-07] MEDS ORDERED: methylPREDNISolone SOD SUCC 125 MG/2 ML VIAL IV PUSH SCH (09:00)
[2017-09-07 09:37] VITALS: O2SAT 94
--- NOTE | 2017-09-07 10:42 | PD.CAR.PN ---
CVT Progress Note Subjective/Hospital Course: 72-year-old male with right-sided pneumonia severe COPD and chronic respiratory insufficiency At this point patient is being treated for the same Started complaining about right upper quadrant pain yesterday and is found to have cholelithiasis as an incidental finding At this point I would definitely avoid doing any surgery in this patient and treat pneumonia and respiratory insufficiency to start with Patient can be started on liquids advance to low-fat diet and we'll see how he does Cholelithiasis is only incidental finding and well patient may have at the biliary colic last night this is resolved by now Once all the medical issues of taking care of we can reevaluate the patient and see if we can go ahead with laparoscopic cholecystectomy at that time Full consult dictated Will follow Thanks J 09/06/17 Patient improved today Breathing is much better and patient has less SOB and improved aeration of both lungs with lesser effort Abdomen is soft active bowel sounds no rebound no guarding no masses Biliary colic is resolving I believe patient will be best served by having this pneumonia resolved first and then he can be brought in electively for laparoscopic cholecystectomy. The only caveat to that would be patient developed another biliary colic or the cholecystitis worsened which is unlikely. Therefore to summarize I would prefer the patient has pneumonia treated goes home and that I can follow-up with him and we can take the gallbladder out electively in a month or so 09/07/17 Patient doing okay respiratory Lateral good breath sounds Abdomen is soft active bowel sounds no rebound no guarding no masses Biliary colic has abated Patient can be advanced to low-fat diet and then discharged from my point Can follow-up with my office in a few weeks and we'll schedule him for elective cholecystectomy Objective: Vital Signs Date Time Temp Pulse Resp B/P (MAP) Pulse Ox O2 Delivery O2 Flow Rate FiO2 09/07/17 09:38 2.00 09/07/17 09:37 94 Nasal Cannula 2.00 09/07/17 08:11 97.6 92 18 147/78 (101) 94 09/07/17 04:00 98.7 94 20 175/78 (110) 96 09/07/17 00:00 97.0 90 20 138/87 (104) 93 09/06/17 23:14 Nasal Cannula 2.00 09/06/17 20:00 98.2 107 20 162/80 (107) 91 09/06/17 19:36 100 Nasal Cannula 2.00 09/06/17 16:00 97.8 89 19 141/71 (94) 95 09/06/17 12:50 98.1 97 19 142/73 (96) 95 Labs: Laboratory Tests Test 09/07/17 06:48 White Blood Count 7.6 TH/MM3 (4.0-11.0) Red Blood Count 4.64 MIL/MM3 (4.50-5.90) Hemoglobin 14.4 GM/DL (13.0-17.0) Hematocrit 42.5 % (39.0-51.0) Mean Corpuscular Volume 91.6 FL (80.0-100.0) Mean Corpuscular Hemoglobin 31.1 PG (27.0-34.0) Mean Corpuscular Hemoglobin Concent 34.0 % (32.0-36.0) Red Cell Distribution Width 14.3 % (11.6-17.2) Platelet Count 151 TH/MM3 (150-450) Mean Platelet Volume 9.9 FL (7.0-11.0) Neutrophils (%) (Auto) 80.1 % (16.0-70.0) Lymphocytes (%) (Auto) 11.2 % (9.0-44.0) Monocytes (%) (Auto) 8.1 % (0.0-8.0) Eosinophils (%) (Auto) 0.1 % (0.0-4.0) Basophils (%) (Auto) 0.5 % (0.0-2.0) Neutrophils # (Auto) 6.1 TH/MM3 (1.8-7.7) Lymphocytes # (Auto) 0.9 TH/MM3 (1.0-4.8) Monocytes # (Auto) 0.6 TH/MM3 (0-0.9) Eosinophils # (Auto) 0.0 TH/MM3 (0-0.4) Basophils # (Auto) 0.0 TH/MM3 (0-0.2) CBC Comment DIFF FINAL Differential Comment Blood Urea Nitrogen 19 MG/DL (7-18) Creatinine 1.13 MG/DL (0.60-1.30) Random Glucose 112 MG/DL (74-106) Calcium Level 9.5 MG/DL (8.5-10.1) Sodium Level 141 MEQ/L (136-145) Potassium Level 3.7 MEQ/L (3.5-5.1) Chloride Level 103 MEQ/L (98-107) Carbon Dioxide Level 30.6 MEQ/L (21.0-32.0) Anion Gap 7 MEQ/L (5-15) Estimat Glomerular Filtration Rate 64 ML/MIN (>89) Result Diagram: 09/07/17 0648 09/07/17 0648 Dacia Pagan MD Sep 07, 2017 10:42
[2017-09-07 12:21] VITALS: BP 131/75; PULSE 96; RESP 20; TEMP 98; O2SAT 95
--- NOTE | 2017-09-07 12:58 | HHI.DS ---
Discharge Summary Admission Date Sep 04, 2017 at 12:36 Discharge Date: Sep 07, 2017 Admitting Diagnosis shortness of breath/pneumonia [facility] Surgery Dr. Carrington Pulmonology Brief History "72-year-old male with a past medical history significant for COPD, hypertension , hyperlipidemia and history of TIA presents to the emergency department with increasing shortness of breath, productive cough and fevers. The patient reports his symptoms started last night when he had an increase in sputum production with his regular cough. He states his fever was as high as 102 this morning. He endorses fevers and chills. He states he has had to use his home oxygen continuously and was still feeling short of breath despite this. Additionally, the patient complains of abdominal pain, worse in the right upper quadrant. He states he was recently told he has gallstones. On arrival to the emergency department his temperature was 103.1, pulse 118, respiratory rate 26, BP 143/67 pulse ox 93% on 3 L nasal cannula." CBC/BMP: 09/07/17 0648 09/07/17 0648 Significant Findings Laboratory Tests Test 09/04/17 17:45 09/05/17 07:10 09/06/17 07:00 09/07/17 06:48 Platelet Count 137 TH/MM3 (150-450) Neutrophils (%) (Auto) 91.2 % (16.0-70.0) 90.8 % (16.0-70.0) 80.1 % (16.0-70.0) Lymphocytes (%) (Auto) 4.6 % (9.0-44.0) 3.6 % (9.0-44.0) Neutrophils # (Auto) 9.5 TH/MM3 (1.8-7.7) 10.1 TH/MM3 (1.8-7.7) Lymphocytes # (Auto) 0.5 TH/MM3 (1.0-4.8) 0.4 TH/MM3 (1.0-4.8) 0.9 TH/MM3 (1.0-4.8) Random Glucose 150 MG/DL (74-106) 138 MG/DL (74-106) 112 MG/DL (74-106) Albumin 2.9 GM/DL (3.4-5.0) 2.8 GM/DL (3.4-5.0) Aspartate Amino Transf (AST/SGOT) 14 U/L (15-37) Estimat Glomerular Filtration Rate 59 ML/MIN (>89) 66 ML/MIN (>89) 64 ML/MIN (>89) White Blood Count 11.1 TH/MM3 (4.0-11.0) Red Blood Count 4.36 MIL/MM3 (4.50-5.90) Total Protein 6.1 GM/DL (6.4-8.2) Chloride Level 108 MEQ/L (98-107) Monocytes (%) (Auto) 8.1 % (0.0-8.0) Blood Urea Nitrogen 19 MG/DL (7-18) Imaging Last Impressions Chest X-Ray 09/06/17 0000 Signed Impressions: Service Date/Time: Wednesday, September 06, 2017 10:07 - CONCLUSION: No significant change. Post surgical findings in the right lung again seen. Persistent volume loss and lateral right lung opacity that may represent scarring or infection. Roddy Oro MD Carotid Artery Ultrasound 09/06/17 0000 Signed Impressions: Service Date/Time: Wednesday, September 06, 2017 10:51 - CONCLUSION: Calcified plaque at the carotid bulbs. No evidence of hemodynamically significant carotid stenosis. Roddy Oro MD Gall Bladder Ultrasound 09/04/17 0000 Signed Impressions: Service Date/Time: Monday, September 04, 2017 13:26 - CONCLUSION: 1. Cholelithiasis with sonographic findings concerning for early acute cholecystitis. Consider HIDA scan if there is continued clinical uncertainty. Reid Lai MD Hospital Course 72-year-old male with COPD presented with COPD exacerbation and community- acquired pneumonia. He was started on IV antibiotics, Rocephin and azithromycin IV steroids. As he clinically improved he was transitioned to by mouth antibiotics. He had abdominal pain during his hospitalization and abdominal ultrasound was significant for cholecystitis. He is evaluated by surgery who recommended to treat his acute lung disease in the follow-up as an outpatient for laparoscopic cholecystectomy. By September 07 patient had significantly improved and had reached maximum benefit from inpatient hospitalization. He was discharged on PO abx and steroid taper. He already had home O2 that he was only using sparingly, walk test revealed patient to wear this all the time. Pt Condition on Discharge: Stable Discharge Disposition: Disch w/ Home Health Serv Discharge Instructions DIET: Follow Instructions for: Heart Healthy Diet Activities you can perform: Weight Bearing as Dmitry Follow up Referrals: PCP Follow-up PCP Follow-up Pulmonology - 1 Week Pulmonology Vascular Surgery - 1 Month with Dacia Pagan MD Vascular Surgery New Medications: Levofloxacin (Levofloxacin) 500 Mg Tablet 500 MG PO DAILY for Infection for 6 Days, #6 TAB 0 Refills Pantoprazole (Protonix) 40 Mg Tab 40 MG PO DAILY for Reflux, #30 TAB 0 Refills Prednisone (Prednisone) 20 Mg Tab 20 MG PO DIRECTED for copd, #11 TAB 0 Refills 40 MG twice a day x 3 days, then 20 MG daily x 3 days, then 10 MG daily x 3 days Continued Medications: Cholecalciferol (Vitamin D-3) 2,000 Unit Tab 2000 UNITS PO DAILY Clopidogrel (Plavix) 75 Mg Tab 75 MG PO DAILY for Blood Clot Prevention, #90 TAB 1 Refill Cyanocobalamin ER (Vitamin B-12 Cr) 1,000 Mcg Tab 2000 MCG PO DAILY for Nutritional Supplement, #1 BOTTLE 0 Refills Oxygen tank (Oxygen tank) 1 Ea Tank 2 LITER VARSHA.CANULA CONTINUOUS for HYPOXEMIA PREVENTION, #1 CYLINDER Oxygen Concentrator Portable Gaseous 2 L/min via Nasal Cannula Continuous For 99 months Pantoprazole (Pantoprazole) 40 Mg Tab 40 MG PO DAILY for Reflux, #90 TAB 1 Refill Simvastatin (Simvastatin) 20 Mg Tab 20 MG PO HS for Cholesterol Management, #30 TAB 0 Refills Umeclidinium-Vilanterol Inh (Anoro Ellipta Inh) 62.5-25 Mcg/Act Aero 1 PUFF INH DAILY for COPD, #1 INHALER 0 Refills Cici Arredondo MD Sep 07, 2017 12:58
== END 2017-09-07 13:31 | disposition home health service (06) | DRG 190 ==
LOC: NEPC 10:11 → NEDH 12:36 → N05A 15:50
PROVIDERS: ADMIT Family Medicine; ATTEND Family Medicine
DX: J44.0 Chronic obstructive pulmonary disease with (acute) lower respiratory infection (principal); J18.9 Pneumonia, unspecified organism; N17.9 Acute kidney failure, unspecified; J96.11 Chronic respiratory failure with hypoxia; K80.00 Calculus of gallbladder with acute cholecystitis without obstruction; Z99.81 Dependence on supplemental oxygen; J44.1 Chronic obstructive pulmonary disease with (acute) exacerbation; I25.10 Atherosclerotic heart disease of native coronary artery without angina pectoris; Z86.73 Personal history of transient ischemic attack (TIA), and cerebral infarction without residual deficits; Z79.02 Long term (current) use of antithrombotics/antiplatelets; I10 Essential (primary) hypertension; E78.5 Hyperlipidemia, unspecified; K21.9 Gastro-esophageal reflux disease without esophagitis; Z86.11 Personal history of tuberculosis; Z90.2 Acquired absence of lung [part of]; Z87.891 Personal history of nicotine dependence
CPT/HCPCS: 36600; 71045; 76705; 80048; 80053; 81001; 82805; 83605; 85025; 87040; 87070; 87205; 87449; 87804; 93005; 93880; 94618; 94640; 94664; 96365; 96367; 96375; J0456; J0692; J0696; J1644; J1940; J2405; J2920; J2930; J7030; J7050